=== PATIENT | male | born 1965 | race Caucasian/White ===

== ENCOUNTER 2021-07-29 09:23 | Outpatient (CLI) | payer BC, SELFPAY ==
[2021-07-29 10:39] LABS: Anion Gap 2 (5-15); BUN 21 mg/dL (7-18); BUN/Creat Ratio 22.5 RATIO (10-20); Calcium,Total 8.6 mg/dL (8.5-10.1); Chloride 107 mmol/L (98-107); Cholesterol 192 mg/dL (200); Creatinine, Serum 0.93 mg/dL (0.70-1.30); EST Glomerular Filtration Rate 88 mL/min (>60); Est Glom Filt Rate - Afr Amer 107 mL/min (>60); Glucose 98 mg/dL (74-106); High Density Lipoprotein 29 mg/dL; PSA,Total - Annual Screen 0.98 ng/mL (0.00-4.00); Potassium 4.2 mmol/L (3.5-5.1); Sodium Level 140 mmol/L (136-145); Thyroid Stim Hormone (TSH) 1.87 uIU/mL (0.358-3.74); Triglycerides 174 mg/dL; Very Low Density Lipoprotein 35 mg/dL (5-40)
== END 2021-07-29 23:59 | disposition home or self-care (01) ==
LOC: LAB 09:28
PROVIDERS: PCP Family Medicine; Referring Provider Family Medicine; Visit Provider Family Medicine
DX: N40.0 Benign prostatic hyperplasia without lower urinary tract symptoms (principal); F41.9 Anxiety disorder, unspecified; I10 Essential (primary) hypertension
CPT/HCPCS: 36415; 80048; 80061; 84153; 84443; G0103

== ENCOUNTER → 2021-12-27 | Outpatient (CLI) | payer BC, SELFPAY ==
--- NOTE | 2021-12-27 16:10 | RAD_ITS ---
INDICATION: PAIN EXAMINATION/TECHNIQUE: X-RAY - XR Abdomen Series W/ Chest 1 View: 5 image Frontal chest with upright and supine abdominal radiograph COMPARISON: None. FINDINGS: --Chest: LINES/DEVICES: None. LUNGS: No consolidation, edema or effusion. No pneumothorax. MEDIASTINUM AND CARDIOVASCULAR STRUCTURES: Cardiac silhouette not enlarged. Central airways and mediastinal contour are unremarkable. BONES AND SOFT TISSUES: No acute findings. --Abdomen: BOWEL GAS PATTERN: Epigastric surgical changes. Non-obstructive bowel gas pattern. No bowel or stomach distention. Large colonic stool burden. FREE AIR: None visualized. ORGANOMEGALY: Hepatomegaly. Splenomegaly suggested. CALCIFICATIONS: Pelvic phleboliths. BONES AND SOFT TISSUES: No acute findings. Dextrocurvature of the thoracolumbar spine. RAD/Acute Abdomen Inc Chest IMPRESSION: No evidence of acute cardiopulmonary process. Large colonic stool burden as can be seen with constipation. Findings concerning for hepatosplenomegaly Electronically Signed: Josef Baeza MD at 23:48 EDT ,
[2021-12-27 17:55] LABS: Hematocrit 36.2 % (40-54); Hemoglobin 12.1 g/dL (13.0-16.5); Mean Corp Hgb Conc 33.4 g/dL (32-36); Mean Corpuscular Hgb 29.3 pg (27.0-32.0); Mean Corpuscular Volume 87.7 fL (80-94); Mean Platelet Vol. 10.2 fl (6.2-12.0); Platelet Count 115 K/mm3 (150-450); RBC Distribution Width CV 14.1 % (11.6-14.6); RBC Distribution Width SD 45.3 fl (35.1-43.9); Red Blood Count 4.13 M/mm3 (4.6-6.2); White Blood Count 4.1 K/mm3 (4.4-11.0)
[2021-12-27 18:33] LABS: ALB/GLOB Ratio 1.2 RATIO (0.9-2.4); AST(SGOT) 13 U/L (15-37); Alanine Aminotransfer ALT/SGPT 24 U/L (16-61); Albumin, Serum 3.7 g/dL (3.2-5.0); Alkaline Phosphatase 82 U/L (45-117); Anion Gap 4 (5-15); BUN 20 mg/dL (7-18); BUN/Creat Ratio 18.7 RATIO (10-20); Calcium,Total 8.5 mg/dL (8.5-10.1); Chloride 107 mmol/L (98-107); Creatinine, Serum 1.07 mg/dL (0.70-1.30); EST Glomerular Filtration Rate 75 mL/min (>60); Est Glom Filt Rate - Afr Amer 91 mL/min (>60); Globulin 3.2 g/dL (2.2-4.2); Glucose 97 mg/dL (74-106); Lipase 56 U/L (73-393); Potassium 4.2 mmol/L (3.5-5.1); Protein, Total 6.9 g/dL (6.4-8.2); Sodium Level 139 mmol/L (136-145)
== END | disposition home or self-care (01) ==
LOC: MTLAB 16:09
PROVIDERS: PCP Family Medicine; Referring Provider Family Medicine; Visit Provider Family Medicine
DX: R10.9 Unspecified abdominal pain (principal); R19.7 Diarrhea, unspecified
CPT/HCPCS: 36415; 74022; 80053; 83690; 85027

== ENCOUNTER → 2021-12-29 | Outpatient (CLI) | payer BC, SELFPAY | END | disposition home or self-care (01) | LOC: LAB 11:48 | PROVIDERS: PCP Family Medicine; Referring Provider Family Medicine; Visit Provider Family Medicine | DX: R19.7 Diarrhea, unspecified (principal); R10.9 Unspecified abdominal pain | CPT/HCPCS: 87506 ==

== ENCOUNTER → 2022-04-14 | Outpatient (CLI) | payer BC, SELFPAY ==
[2022-04-14 08:31] LABS: Anion Gap 2 (5-15); BUN 17 mg/dL (7-18); BUN/Creat Ratio 18.4 RATIO (10-20); Calcium,Total 8.5 mg/dL (8.5-10.1); Chloride 110 mmol/L (98-107); Cholesterol 144 mg/dL (200); Creatinine, Serum 0.92 mg/dL (0.70-1.30); EST Glomerular Filtration Rate 89 mL/min (>60); Est Glom Filt Rate - Afr Amer 108 mL/min (>60); Glucose 100 mg/dL (74-106); High Density Lipoprotein 27 mg/dL; PSA,Total- Diagnostic 1.08 ng/mL (0.0-4.0); Potassium 4.5 mmol/L (3.5-5.1); Sodium Level 140 mmol/L (136-145); Triglycerides 110 mg/dL; Very Low Density Lipoprotein 22 mg/dL (5-40)
== END | disposition home or self-care (01) ==
LOC: LAB 07:37
PROVIDERS: PCP Family Medicine; Referring Provider Family Medicine; Visit Provider Family Medicine
DX: Z00.00 Encounter for general adult medical examination without abnormal findings (principal); N40.0 Benign prostatic hyperplasia without lower urinary tract symptoms
CPT/HCPCS: 36415; 80048; 80061; 84153

== ENCOUNTER → 2023-04-20 | Outpatient (CLI) | payer BC, SELFPAY ==
[2023-04-20 08:29] LABS: Anion Gap 2 (5-15); BUN 15 mg/dL (7-18); BUN/Creat Ratio 15.2 RATIO (10-20); Chloride 108 mmol/L (98-107); Cholesterol 163 mg/dL (200); Creatinine, Serum 0.99 mg/dL (0.70-1.30); EST Glomerular Filtration Rate 82 mL/min (>60); Est Glom Filt Rate - Afr Amer 99 mL/min (>60); Glucose 100 mg/dL (74-106); High Density Lipoprotein 32 mg/dL; PSA,Total - Annual Screen 1.17 ng/mL (0.00-4.00); Potassium 4.5 mmol/L (3.5-5.1); Sodium Level 139 mmol/L (136-145); Triglycerides 94 mg/dL; Very Low Density Lipoprotein 19 mg/dL (5-40)
== END | disposition home or self-care (01) ==
LOC: LAB 07:17
PROVIDERS: PCP Family Medicine; Referring Provider Family Medicine; Visit Provider Family Medicine
DX: Z00.00 Encounter for general adult medical examination without abnormal findings (principal)
CPT/HCPCS: 36415; 80048; 80061; 84153; G0103

== ENCOUNTER → 2024-10-19 | Outpatient (CLI) | payer BC, SELFPAY ==
[2024-10-20 16:01] LABS: ALB/GLOB Ratio 1.8 RATIO (0.9-2.4); AST(SGOT) 19 U/L (<=37); Alanine Aminotransfer ALT/SGPT 16 U/L (<=46); Albumin, Serum 4.3 g/dL (3.4-4.8); Alkaline Phosphatase 94 U/L (40-129); Anion Gap 10 (5-15); BUN 16 mg/dL (4-19); BUN/Creat Ratio 16.7 RATIO (10-20); Calcium,Total 9.1 mg/dL (7.6-11.0); Carbon Dioxide 24.9 mmol/L (21.0-32.0); Chloride 105 mmol/L (98-108); Cholesterol 150 mg/dL (<=200); Creatinine, Serum 0.95 mg/dL (0.70-1.20); EST Glomerular Filtration Rate 91 (>60); Globulin 2.4 g/dL (2.2-4.2); Glucose 89 mg/dL (70-99); High Density Lipoprotein 25 mg/dL; Low Density Lipoprotein Calc. 88 mg/dL; Potassium 4.1 mmol/L (3.3-5.1); Protein, Total 6.7 g/dL (5.9-8.4); Sodium Level 139 mmol/L (133-145); Total Bilirubin 0.56 mg/dL (0.00-1.30); Triglycerides 186 mg/dL; Very Low Density Lipoprotein 37 mg/dL (5-40); cholesterol:hdl ratio screen 5.98
== END | disposition home or self-care (01) ==
LOC: MFPLAB 08:53
PROVIDERS: PCP Family Medicine; Referring Provider Family Medicine; Visit Provider Family Medicine
DX: I10 Essential (primary) hypertension (principal)
CPT/HCPCS: 36415; 80053; 80061

== ENCOUNTER 2025-02-16 14:27 | Inpatient (IN) | payer BC, SELFPAY ==
[2025-02-16 14:28] VITALS: BP 155/94; PULSE 103; RESP 18; TEMP 36.8; O2SAT 96; BMI 29.0
--- NOTE | 2025-02-16 15:22 | US_ITS ---
PROCEDURE: GALLBLADDER 02/16/2025 REASON FOR EXAM: PAIN TECHNIQUE: Procedure Code: USGB Modality: US Procedure: GALLBLADDER COMPARISON: Same-day CT from 02/16/2025. FINDINGS: GALLBLADDER: Distended. No gallstones. Sludge is noted. Gallbladder wall thickening to 6 mm. Trace pericholecystic fluid. Negative Sanchez sign. COMMON BILE DUCT: Measures 8 mm. LIVER: Enlarged liver to 20.2 cm. Increased echogenicity.. Hyperechoic structure within the right hepatic lobe measuring 1.2 x 1.2 x 1.4 cm. RIGHT KIDNEY: Normal in size and echogenicity. No mass. No urinary stones. No hydronephrosis. Pancreas: Within normal limits US/Gallbladder IMPRESSION: Distended gallbladder with thickened gallbladder wall and trace pericholecystic fluid. No definite gallstone is noted. Nonspecific CBD dilation to 8 mm. Acute cholecystitis, cholangitis, or CBD obs truction is not excluded. Consider MRCP if there is continued concern. Hepatomegaly and hepatic steatosis. Hyperechoic structure within the right hepa tic lobe measuring 1.2 x 1.2 x 1.4 cm. Reading Location: [id number]
--- NOTE | 2025-02-16 15:23 | ED.VIS.GI ---
HPI HPI - GI History of Present Illness Chief Complaint: Abd Pain Informant: patient Abdominal Pain/Flank Pain Onset: Today and Yesterday Context: Gradual Onset Timing: Continuous Quality: Aching Location: RUQ Current Severity: Moderate Maximum Severity: Moderate Worsened by: Nothing Relieved by: Nothing Nausea/Vomiting/Emesis GI Symptom: Positive for Nausea Onset: Today and Yesterday Diarrhea/Melena/Hematochezia GI Symptom: Negative for Diarrhea, Melena or Hematochezia Associated Symptoms Associated Symptoms: Negative for Dysuria, Frequency, Hematuria or Urgency Narrative Narrative: 59-year-old male history of BPH. Prior abdominal hernia repair and 1 testicle removed in the past due to cancer. Planing of epigastric Rivacor abdominal pain since yesterday. Associated nausea. No diarrhea. No fever. No dysuria. Had an outpatient CAT scan done today which showed gallstones and possible cholecystitis. No labs. Was sent in by his primary care physician's office to the emergency department. States he had a subjective fever and chills with this. Prior similar symptoms: No Recent Illness/Hospitalization: No PFSH PFSH Allergy/AdvReac Type Severity Reaction Status Date / Time iodine Allergy Rash Verified 02/16/25 15:47 Penicillins Allergy unknown Verified 02/16/25 15:47 ROS ROS ED ROS Narrative Abdominal pain. Nausea. Subjective fever and chills. Constitutional Constitutional ED: Reports chills, fever(s) and subjective ENT ENT ED: Denies ear pain Cardiovascular Cardiovascular: Denies chest pain Respiratory/Chest Respiratory/Chest: Denies cough Gastrointestinal Gastrointestinal: Reports abdominal pain and nausea; Denies diarrhea or melena Genitourinary Genitourinary ED: Denies dysuria or hematuria Musculoskeletal Musculoskeletal: Denies arthralgias Integumentary Denies abscess Neurologic Neurologic: Denies headache(s) Psychiatric Psychiatric: Denies anxiety Endocrine Endocrinology: Denies polydipsia Hematologic/Lymphatic Hematologic/Lymphatic: Denies easy bleeding Allergic/Immunologic Allergic/Immunologic ED: Denies mouth swelling, tongue swelling or urticaria EXAM Physical Exam Narrative Exam Narrative: 59-year-old male vital signs stable afebrile. Companied by his . H EENT exam pupils round react light. Moist mutes members. Neck nontender no JVD. Back nontender. Lungs clear to auscultation bilaterally. Heart regular rhythm rate about 103 no murmur. Chest wall and ribs nontender. Abdomen soft nondistended normal bowel sounds. Epigastric right upper quadrant tenderness. Right lower quadrant left side of abdomen nontender. Nondistended. No hernia or mass. No pulsatile mass. No obstruction. Moving all 4 extremities. Nontender no edema. Normal strength. Normal range of motion. Neurologically awake and alert. Answer questions following commands. Const Vital Signs: 02/16/25 14:28 02/16/25 16:28 Temperature 98.3 F Temperature Source Oral Pulse Rate 103 H 80 Respiratory Rate 18 16 Blood Pressure 155/94 H 131/85 H Blood Pressure Mean 114 100 Pulse Ox 96 95 Oxygen Delivery Method Room Air Room Air Positive well nourished and well developed; Negative for obese, cachectic or contractures General Appearance ED: well developed and NAD; Negative for cachectic, contractures or pallor Nutritional Appearance: Negative for cachectic or obese HEENT Reports moist mucous membranes normocephalic and atraumatic Eyes PERRL and EOMs intact bilaterally Neck no lymphadenopathy, supple and no JVD General: Negative for tenderness Lymph Lymphatic: Negative for other Resp normal respiratory effort and clear to auscultation bilaterally Effort and Inspection: Negative for respiratory distress Auscultation: Negative for rales, rhonchi, wheezes or diminished lung sounds Cardio regular rate, regular rhythm, S1 normal heart sound, S2 normal heart sound and no murmurs Rate: Negative for bradycardia or tachycardic Rhythm: Negative for abnormal rhythm GI non-distended and no masses; Negative for non-tender Auscultation: normoactive bowel sounds Palpation: soft and tender; Negative for guarding, rigid, hepatomegaly, splenomegaly, hernia, mass, pulsatile mass or rebound tenderness present Back/Spine no CVA tenderness General Back: Negative for CVA tenderness Cervical Spine: Negative for cervical spine tenderness Thoracic Spine / Upper Back: Negative for thoracic spinal tenderness Lumbar Spine / Lower Back: Negative for lumbar spinal tenderness Extremity full ROM General Extremety ED: Negative for edema or tenderness General Extremity: Negative for edema Neuro CN's II-XII intact bilaterally and moves all extremities Sensorium / Orientation: alert, oriented to person, oriented to place and oriented to time Motor Exam: strength 5/5 throughout Psych mental status grossly normal and thought process normal Attitude: No agitated Mood & Affect: Negative for depressed, anxious or tearful Skin no wounds General Skin Exam: Negative for jaundice or pallor Lesions: no lesions Rashes: no rashes Trauma: Negative for abrasion Nails: Negative for discolored MDM MDM MDM Narrative Medical decision making narrative: 59-year-old right upper quadrant epigastric abdominal pain with a CAT scan today showing gallstones and possible cholecystitis. Patient was treated with IV morphine and Zofran. Ultrasound of the gallbladder will be obtained and screening labs. Repeat exam patient was doing well around 4 PM. Pain much better after the pain medication. We discussed his test results were just waiting on the ultrasound of his gallbladder. Gallbladder ultrasound is consistent with distended gallbladder with thickened gallbladder wall and trace Yousif cholecystic fluid. Consistent with acute cholecystitis. I discussed this with general surgeon Dr. Esmer Brunner. She is in the emergency department this time evaluate the patient and will admit the patient for possible cholecystectomy tomorrow. Patient be started on IV Zosyn. EKG will be obtained for preop. History & Record Review Discussion w/independent historian: Patient and Family Additional record(s) reviewed:: No prior records Lab Data Attestation: I reviewed the patient's lab results. Lab results narrative: CBC shows white count 7. H&H 13 and 38. Platelets 123. Electrolytes show sodium 132. Gap 12. Normal BUN of 12 creatinine 0.9. Glucose 165. Liver enzymes show a AST of 60. ALT of 111. Alk phos 288. Lipase is 11. Urinalysis shows 5-10 red cells. No white cells. No bacteria. No nitrites. Labs: Laboratory Results - last 24 hr 02/16/25 02/16/25 15:25 15:45 WBC 7.2 RBC 4.46 L Hgb 13.6 Hct 38.7 L MCV 86.8 MCH 30.5 MCHC 35.1 RDW Std Deviation 40.2 RDW Coeff of [place] 12.7 Plt Count 123 L MPV 9.4 Immature Gran % (Auto) 0.300 Neut % (Auto) 82.6 H Lymph % (Auto) 7.2 L [place] % (Auto) 9.8 Eos % (Auto) 0.0 Baso % (Auto) 0.1 Absolute Neuts (auto) 6.0 Absolute Lymphs (auto) 0.52 L Nucleated RBC % 0 Sodium 132 L Potassium 3.8 Chloride 97 L Carbon Dioxide 23.4 Anion Gap 12 BUN 12 Creatinine 0.90 Estim Creat Clear Calc 95.14 Est GFR (MDRD) Non-Af 97 BUN/Creatinine Ratio 12.9 Glucose 165 H Calcium 9.3 Total Bilirubin 1.17 AST 60 H ALT 111 H Alkaline Phosphatase 288 H Total Protein 7.3 Albumin 4.0 Globulin 3.3 Albumin/Globulin Ratio 1.2 Lipase 11 L Urine Color Yellow Urine Clarity Sl Cloudy Urine pH 6.0 Ur Specific [place] 1.020 Urine Protein 30 H Urine Glucose (UA) Normal Urine Ketones Negative Urine Occult Blood 50 H Urine Nitrite Negative Urine Bilirubin Negative Urine Urobilinogen Normal Ur Leukocyte Esterase 25 H Urine RBC 5-10 SEEN Urine WBC 0-5 SEEN Ur Squamous Epith Cells 0 SEEN Urine Bacteria 0 SEEN Urine Mucus 2+ Radiography Diagnostic Testing: Clinical Impression(s) from Imaging Studies Gallbladder Ultrasound 02/16/25 15:22 IMPRESSION: Distended gallbladder with thickened gallbladder wall and trace pericholecystic fluid. No definite gallstone is noted. Nonspecific CBD dilation to 8 mm. Acute cholecystitis, cholangitis, or CBD obstruction is not excluded. Consider MRCP if there is continued concern. Hepatomegaly and hepatic steatosis. Hyperechoic structure within the right hepatic lobe measuring 1.2 x 1.2 x 1.4 cm. Reading Location: [id number] Discharge Plan Dx/Rx/DC Orders Clinical Impression: Abdominal pain, Acute cholecystitis Disposition Disposition: Acute Care [facility]
[2025-02-16 15:40] LABS: Hematocrit 38.7 % (40-54); Hemoglobin 13.6 g/dL (13.0-16.5); Immature Granulocytes Count 0.020 X10^3/uL (0.0-0.0); Mean Corp Hgb Conc 35.1 g/dL (32-36); Mean Corpuscular Volume 86.8 fL (80-94); Mean Platelet Vol. 9.4 fl (6.2-12.0); NRBC Flagged by Analyzer 0 % (0-5); POSITIVE DIFFERENTIAL YES; Platelet Count 123 K/mm3 (150-450); RBC Distribution Width CV 12.7 % (11.6-14.6); RBC Distribution Width SD 40.2 fl (35.1-43.9); Red Blood Count 4.46 M/mm3 (4.6-6.2); White Blood Count 7.2 K/mm3 (4.4-11.0)
[2025-02-16 15:49] LABS: Squamous Epithelial Cells - UA 0 SEEN /hpf (0-5)
[2025-02-16 15:52] LABS: Color, Urine Yellow (Yellow); Glucose, Dipstick Normal (Normal); Ketone-Dipstick Negative (Negative); Leukocyte Esterase-Dipstick 25 /ul (Negative); Nitrite-Dipstick Negative (Negative); Occult Blood-Urine 50 /ul (Negative); Protein-Dipstick 30 mg/dl (Negative); Specific Gravity, Urine 1.020 (1.002-1.030); Urine Bilirubin Dipstick Negative (Negative)
[2025-02-16 16:02] LABS: Mucous, Urine 2+ /hpf (<or=2+); Red Blood Cells-Urine 5-10 SEEN /hpf (0-5)
[2025-02-16 16:02] LABS: AST(SGOT) 60 U/L (<=37); Alanine Aminotransfer ALT/SGPT 111 U/L (<=46); Albumin, Serum 4.0 g/dL (3.4-4.8); Alkaline Phosphatase 288 U/L (40-129); Anion Gap 12 (5-15); BUN 12 mg/dL (4-19); BUN/Creat Ratio 12.9 RATIO (10-20); Calcium,Total 9.3 mg/dL (7.6-11.0); Carbon Dioxide 23.4 mmol/L (21.0-32.0); Chloride 97 mmol/L (98-108); Estimated Creatinine Clearance 95.14 ml/min (50-250); Globulin 3.3 g/dL (2.2-4.2); Glucose 165 mg/dL (70-99); Lipase 11 U/L (13-75); Potassium 3.8 mmol/L (3.3-5.1)
[2025-02-16 16:28] VITALS: BP 131/85; PULSE 80; RESP 16; O2SAT 95
--- NOTE | 2025-02-16 17:32 | EKG12_ITS ---
Test Reason : ABD PAIN Blood Pressure : */* mmHG Vent. Rate : 73 BPM Atrial Rate : 73 BPM P-R Int : 140 ms QRS Dur : 86 ms QT Int : 372 ms P-R-T Axes : 43 -1 32 degrees QTcB Int : 409 ms Normal sinus rhythm Normal ECG Confirmed by OSCAR SAXENA MD ([id number]), multimedia editor EDD RAGLAND ([id number]) on 02/17/2025 10:54:12 AM Referred By: CESAR Confirmed By: OSCAR SAXENA MD
--- NOTE | 2025-02-16 17:45 | PCM.HP.STD ---
HPI - General General Date of Admission: 02/16/25 HPI Narrative FIDELIA VALDOVINOS, is a 59 M who presents to the ER due to right upper quadrant pain. Patient states he had pain on Saturday but then it was gone on Saturday with then had the pain come back on Saturday and has not resolved. Patient did see his PCP and had a CT abdomen done showing possible cholecystitis and was told to go to the ER. Patient had a white blood cell count 7.2 with left shift, ultrasound was done of the gallbladder which showed thickened gallbladder wall trace. Cholecystic fluid no obvious stones are called on the report, 8 mm common bile duct. Patient's AST ALT and alk phos were elevated at the ER as well. Normal total bilirubin [facility] Medical History Hx of testicular cancer Home Medications ?Medication ?Instructions ?Recorded ?Last Taken ?Type tamsulosin 0.4 mg capsule 0.8 mg PO DAILY 02/16/25 02/14/25 07:45 History 0.8 mg Allergy/AdvReac Type Severity Reaction Status Date / Time iodine Allergy Rash Verified 02/16/25 15:47 Penicillins Allergy unknown Verified 02/16/25 15:47 Surgical History Status post left inguinal hernia repair S/P repair of ventral hernia Social History Smoking Status: Never smoker ROS Constitutional Constitutional: Reports anorexia and fever(s) Eyes Eyes: Denies blurry vision ENT HEENT: Denies dysphagia Cardiovascular Cardiovascular: Denies chest pain Respiratory/Chest Respiratory/Chest: Denies cough Gastrointestinal Gastrointestinal: Reports abdominal pain and nausea Genitourinary Genitourinary: Denies hematuria Musculoskeletal Musculoskeletal: Denies joint swelling Integumentary Integumentary: Denies jaundice Neurologic Neurologic: Denies dizziness Psychiatric Psychiatric: Denies anxiety Hematologic/Lymphatic Hematologic/Lymphatic: Denies easy bleeding Vital Signs Vital Signs Vital Signs: 02/16/25 14:28 02/16/25 16:28 Temperature 98.3 F Temperature Source Oral Pulse Rate 103 H 80 Respiratory Rate 18 16 Blood Pressure 155/94 H 131/85 H Blood Pressure Mean 114 100 Pulse Ox 96 95 Oxygen Delivery Method Room Air Room Air Weight Weight: 196 lb 4.8 oz Body Mass Index (BMI) 29.0 Physical Exam Const alert, oriented x3 and no apparent distress HEENT normocephalic and head/scalp atraumatic Resp normal respiratory effort Cardio regular rate GI soft to palpation; Negative for non-distended GI Narrative: Well-healed midline incision, well-healed left open groin incision Palpation: tender RUQ; Negative for guarding Extremity no clubbing, cyanosis or edema Neuro CN's II-XII intact bilaterally Psych mental status grossly normal Results Lab / Micro Data 02/17/25 05:55 02/17/25 05:55 Labs: Laboratory Results - last 24 hr 02/16/25 15:25: WBC 7.2, RBC 4.46 L, Hgb 13.6, Hct 38.7 L, MCV 86.8, MCH 30.5, MCHC 35.1, RDW Std Deviation 40.2, RDW Coeff of Dutch 12.7, Plt Count 123 L, MPV 9.4, Immature Gran % (Auto) 0.300, Neut % (Auto) 82.6 H, Lymph % (Auto) 7.2 L, [place] % (Auto) 9.8, Eos % (Auto) 0.0, Baso % (Auto) 0.1, Absolute Neuts (auto) 6.0, Absolute Lymphs (auto) 0.52 L, Nucleated RBC % 0, Sodium 132 L, Potassium 3.8, Chloride 97 L, Carbon Dioxide 23.4, Anion Gap 12, BUN 12, Creatinine 0.90, Estim Creat Clear Calc 95.14, Est GFR (MDRD) Non-Af 97, BUN/Creatinine Ratio 12.9, Glucose 165 H, Calcium 9.3, Total Bilirubin 1.17, AST 60 H, ALT 111 H, Alkaline Phosphatase 288 H, Total Protein 7.3, Albumin 4.0, Globulin 3.3, Albumin/Globulin Ratio 1.2, Lipase 11 L 02/16/25 15:45: Urine Color Yellow, Urine Clarity Sl Cloudy, Urine pH 6.0, Ur Specific [place] 1.020, Urine Protein 30 H, Urine Glucose (UA) Normal, Urine Ketones Negative, Urine Occult Blood 50 H, Urine Nitrite Negative, Urine Bilirubin Negative, Urine Urobilinogen Normal, Ur Leukocyte Esterase 25 H, Urine RBC 5-10 SEEN, Urine WBC 0-5 SEEN, Ur Squamous Epith Cells 0 SEEN, Urine Bacteria 0 SEEN, Urine Mucus 2+ Imaging Radiology Impression Gallbladder Ultrasound 02/16/25 15:22 IMPRESSION: Distended gallbladder with thickened gallbladder wall and trace pericholecystic fluid. No definite gallstone is noted. Nonspecific CBD dilation to 8 mm. Acute cholecystitis, cholangitis, or CBD obstruction is not excluded. Consider MRCP if there is continued concern. Hepatomegaly and hepatic steatosis. Hyperechoic structure within the right hepatic lobe measuring 1.2 x 1.2 x 1.4 cm. Reading Location: [facility] Assessment & Plan Assessment/Plan (1) Acute cholecystitis: (2) Elevated LFTs: PLAN: Plan Discussed with patient and his will plan to check labs in the morning. Any further changes of LFTs that may be suspicious for choledocholithiasis patient could possibly get an MRCP tomorrow otherwise we will plan for a robotic cholecystectomy with possible cholangiograms. Reviewed the anatomy with the patient and discussed the procedure: Robotic/laparoscopic cholecystectomy with possible cholangiograms, possible open. Review risks including but not limited to bleeding, infection, hernia, bile leak, retained gallstones requiring another procedure ERCP- Endoscopic Retrograde Cholangiopancreatography, injury to another organ (bile ducts, common bile duct, small bowel, etc.) and conversion to an open procedure. All questions were answered. Martha Brunner M.D. Pager: [phone] [facility] [address] [place] [address], [facility], [address] [place] [address] Office: [phone] Charges/Coding Visit Charges Inpatient E&M: 87275 Init Hosp L3
[2025-02-16 18:51] VITALS: BP 135/79; PULSE 79; RESP 18; TEMP 36.6; O2SAT 97; BMI 28.3
[2025-02-16] MEDS: HYDROmorphone 0.5 MG/0.5 ML SYRINGE IV (19:07)
[2025-02-16] MEDS: 0.9% Normal Saline (1000mL) 1,000 ML 125 ML IV (19:54)
[2025-02-16] MEDS: 0.9% Saline Lock 10 ML Syringe IV (19:55)
[2025-02-16] MEDS: Piperacil/Tazobactam 3.375 GM in 0.9% Normal Saline (50mL MB+) 50 ML IV (22:20)
[2025-02-16 22:22] VITALS: BP 141/85; PULSE 84; RESP 18; TEMP 38.4; O2SAT 94
[2025-02-17] VITALS (14 sets, daily range): BP systolic 87–154; BP diastolic 49–92; PULSE 63–86; RESP 16–18; TEMP 36.2–38.9; O2SAT 93–98; BMI 28.4
[2025-02-17] MEDS: 0.9% Normal Saline (1000mL) 1,000 ML 125 ML IV ×2 (03:04→18:18)
[2025-02-17] MEDS: Piperacil/Tazobactam 3.375 GM in 0.9% Normal Saline (50mL MB+) 50 ML IV ×3 (06:01→22:07)
[2025-02-17 06:40] LABS: Hematocrit 39.0 % (40-54); Hemoglobin 13.2 g/dL (13.0-16.5); Immature Granulocytes Count 0.040 X10^3/uL (0.0-0.0); Mean Corp Hgb Conc 33.8 g/dL (32-36); Mean Corpuscular Volume 88.4 fL (80-94); Mean Platelet Vol. 9.9 fl (6.2-12.0); NRBC Flagged by Analyzer 0 % (0-5); POSITIVE DIFFERENTIAL YES; Platelet Count 104 K/mm3 (150-450); RBC Distribution Width CV 12.8 % (11.6-14.6); RBC Distribution Width SD 41.5 fl (35.1-43.9); Red Blood Count 4.41 M/mm3 (4.6-6.2); White Blood Count 7.2 K/mm3 (4.4-11.0)
[2025-02-17] MEDS: HYDROmorphone 0.5 MG/0.5 ML SYRINGE IV (07:01)
[2025-02-17 07:05] LABS: AST(SGOT) 78 U/L (<=37); Alanine Aminotransfer ALT/SGPT 145 U/L (<=46); Albumin, Serum 3.8 g/dL (3.4-4.8); Alkaline Phosphatase 310 U/L (40-129); Anion Gap 9 (5-15); BUN 12 mg/dL (4-19); BUN/Creat Ratio 12.1 RATIO (10-20); Bilirubin, Direct 2.30 mg/dL (0.00-0.30); Calcium,Total 9.1 mg/dL (7.6-11.0); Carbon Dioxide 26.3 mmol/L (21.0-32.0); Chloride 101 mmol/L (98-108); Estimated Creatinine Clearance 85.64 ml/min (50-250); Globulin 3.1 g/dL (2.2-4.2); Glucose 108 mg/dL (70-99); Potassium 4.3 mmol/L (3.3-5.1)
--- NOTE | 2025-02-17 07:11 | MRI_ITS ---
PROCEDURE: MRCP ABDOMEN WITHOUT CONTRAST 02/17/2025 REASON FOR EXAM: ELEVATED LIVER ENZYMES TECHNIQUE: Procedure Code: MRIMRCP Modality: MR Procedure: MRCP ABDOMEN WITHOUT CONTRAST Multiplanar and multisequence images were obtained. CONTRAST: None COMPARISON: February 16, 2025 FINDINGS: Liver: No mass Biliary: Gallbladder wall thickening, gallbladder edema, sludge and tiny calculi are present. No filling defect is seen within the bile ducts. Common bile duct is 10 mm. Pancreas: Atrophic but otherwise unremarkable. No mass or ductal dilation. Spleen: Splenic enlargement. Adrenals: Normal. Kidneys: Kidneys are normal. No collecting system dilation. Peritoneum / Retroperitoneum: No free air, free fluid or mass. Lymph Nodes: No lymphadenopathy. Major Vessels: Normal caliber Bones: Lower lumbar facet hypertrophy. Mild curvature lumbar spine to the right. MRI/MRCP Abdomen without Contrast IMPRESSION: 1. Gallbladder wall thickening, edema, sludge and small calculi. Mildly dilat ed bile duct. No filling defect. No mass at the pancreatic head or ampulla. Correlate with physical exam, obstructive laborato ry indices to exclude cholecystitis. 2. Splenomegaly [place] Alert: As above The critical findings in the findings and impression above were relayed directl y by me by telephone to Dulce Cornejo on 02/17/2025 at 11:09 am with readback verification. Reading Location: [id number]
--- NOTE | 2025-02-17 07:37 | PN.SURG_ITS ---
Subjective Subjective Patient did have fever of 101.2 also increased liver functions?MRCP this morning ordered Objective Data Objective Data Vital Signs: Vital Signs Temp Pulse Resp BP Pulse Ox O2 Del Method 98.1 F 86 18 154/82 H 96 Room Air 02/17/25 03:00 02/17/25 03:00 02/17/25 03:00 02/17/25 03:00 02/17/25 03:00 02/17/25 03:00 Oxygen Delivery Method Room Air Weight: 192 lb 1.6 oz Body Mass Index (BMI) 28.3 Intake & Output: Intake and Output for Last 24 Hours 02/15/25 02/16/25 02/17/25 23:59 23:59 23:59 Intake Total 1345.83 / 1345.83 Balance 1345.83 / 1345.83 Lab / Micro Data 02/17/25 05:55 02/17/25 05:55 Labs: Laboratory Results - last 24 hr 02/16/25 15:25: WBC 7.2, RBC 4.46 L, Hgb 13.6, Hct 38.7 L, MCV 86.8, MCH 30.5, MCHC 35.1, RDW Std Deviation 40.2, RDW Coeff of Dutch 12.7, Plt Count 123 L, MPV 9.4, Immature Gran % (Auto) 0.300, Neut % (Auto) 82.6 H, Lymph % (Auto) 7.2 L, [place] % (Auto) 9.8, Eos % (Auto) 0.0, Baso % (Auto) 0.1, Absolute Neuts (auto) 6.0, Absolute Lymphs (auto) 0.52 L, Nucleated RBC % 0, Sodium 132 L, Potassium 3.8, Chloride 97 L, Carbon Dioxide 23.4, Anion Gap 12, BUN 12, Creatinine 0.90, Estim Creat Clear Calc 95.14, Est GFR (MDRD) Non-Af 97, BUN/Creatinine Ratio 12.9, Glucose 165 H, Calcium 9.3, Total Bilirubin 1.17, AST 60 H, ALT 111 H, A lkaline Phosphatase 288 H, Total Protein 7.3, Albumin 4.0, Globulin 3.3, Albumin/Globulin Ratio 1.2, Lipase 11 L 02/16/25 15:45: Urine Color Yellow, Urine Clarity Sl Cloudy, Urine pH 6.0, Ur Specific [place] 1.020, Urine Protein 30 H, Urine Glucose (UA) Normal, Urine Ketones Negative, Urine Occult Blood 50 H, Urine Nitrite Negative, Urine Bilirubin Negative, Urine Urobilinogen Normal, Ur Leukocyte Esterase 25 H, Urine RBC 5-10 SEEN, Urine WBC 0-5 SEEN, Ur Squamous Epith Cells 0 SEEN, Urine Bacteria 0 SEEN, Urine Mucus 2+ 02/17/25 05:55: WBC 7.2, RBC 4.41 L, Hgb 13.2, Hct 39.0 L, MCV 88.4, MCH 29.9, MCHC 33.8, RDW Std Deviation 41.5, RDW Coeff of [place] 12.8, Plt Count 104 L, MPV 9.9, Immature Gran % (Auto) 0.600, Neut % (Auto) 80.5 H, Lymph % (Auto) 8.4 L, M fabienne % (Auto) 10.2 H, Eos % (Auto) 0.0, Baso % (Auto) 0.3, Absolute Neuts (auto) 5.8, Absolute Lymphs (auto) 0.60 L, Nucleated RBC % 0, Sodium 137, Potassium 4.3, Chloride 101, Carbon Dioxide 26.3, Anion Gap 9, BUN 12, Creatinine 0.99, Estim Creat Clear Calc 85.64, Est GFR (MDRD) Non-Af 87, BUN/Creatinine Ratio 12.1, Glucose 108 H, Calcium 9.1, Total Bilirubin 3.88 H, Direct Bilirubin 2.30 H, AST 78 H, ALT 145 H, Alkaline Phosphatase 310 H, Total Protein 6.9, Albumin 3.8, Globulin 3.1 Radiography Diagnostic Testing: Radiology Impression Gallbladder Ultrasound 02/16/25 15:22 IMPRESSION: Distended gallbladder with thickened gallbladder wall and trace pericholecystic fluid. No definite gallstone is noted. Nonspecific CBD dilation to 8 mm. Acute cholecystitis, cholangitis, or CBD obstruction is not excluded. Consider MRCP if there is continued concern. Hepatomegaly and hepatic steatosis. Hyperechoic structure within the right hepatic lobe measuring 1.2 x 1.2 x 1.4 cm. Reading Location: [facility] Physical Exam Const oriented x3 and no apparent distress Resp normal respiratory effort Cardio regular rate GI soft to palpation GI Narrative: Tender in right upper quadrant epigastric Inspection: Negative for abdominal distention Assessment & Plan Assessment/Plan (1) Acute cholecystitis: (2) Elevated LFTs: PLAN: Plan Patient's LFTs did increase we will get an MRCP this morning. Likely ERCP later today. I will be out tomorrow-last laparoscopic/robotic cholecystectomy maybe on Saturday will see what the MRCP and ERCP shows. Discussed with patient. Martha Brunner M.D. Pager: [phone] [facility] [address] [place] [address], [facility], [address] [place] [address] Office: [phone] Charges/Coding Visit Charges Inpatient E&M: 73327 Subs Hosp L2
[2025-02-17] MEDS: 0.9% Saline Lock 10 ML Syringe IV (07:57)
--- NOTE | 2025-02-17 09:01 | EX.PCM.CON.G ---
Documented by User: CHARLENE Juan 02/17/25 09:08 HPI Consult Data Date of Consult: 02/17/25 HPI Narrative Reason for Consultation: concern for choledocholithiasis HPI Narrative: 59-year-old male presented to the emergency department on 02/16/2025 with complaints of RUQ abdominal pain. CT scan was performed outpatient and revealed gallstones and possible cholecystitis. Gallbladder ultrasound consistent with acute cholecystitis. Patient had a fever last night of 101.2. Labs today showing PLT 104 LABS 02/17/2025 WBC 7.2, HGB 13.2, PLT 104, ALC 0.60, ANC 5.8, Na 137, T. Bili 3.88, D. Bili 2.30, AST 78, ALT 145, ALP 310 02/16/2025 WBC 7.2, HGB 13.6, PLT 123, ALC 0.52, Na 132, glucose 165, T. Bili 1.17, AST 60, ALT 111, ALP 288, Lipase 11 PFSH Medical History Hx of testicular cancer Home Medications ?Medication ?Instructions ?Recorded ?Last Taken ?Type tamsulosin 0.4 mg capsule 0.8 mg PO DAILY 02/16/25 02/14/25 07:45 History 0.8 mg Allergy/AdvReac Type Severity Reaction Status Date / Time iodine Allergy Rash Verified 02/16/25 15:47 Penicillins Allergy unknown Verified 02/16/25 15:47 Surgical History Status post left inguinal hernia repair S/P repair of ventral hernia Social History Smoking Status: Never smoker Lab / Micro Data 02/17/25 05:55 02/17/25 05:55 Labs: Laboratory Results - last 24 hr 02/16/25 15:25: WBC 7.2, RBC 4.46 L, Hgb 13.6, Hct 38.7 L, MCV 86.8, MCH 30.5, MCHC 35.1, RDW Std Deviation 40.2, RDW Coeff of Dutch 12.7, Plt Count 123 L, MPV 9.4, Immature Gran % (Auto) 0.300, Neut % (Auto) 82.6 H, Lymph % (Auto) 7.2 L, [place] % (Auto) 9.8, Eos % (Auto) 0.0, Baso % (Auto) 0.1, Absolute Neuts (auto) 6.0, Absolute Lymphs (auto) 0.52 L, Nucleated RBC % 0, Sodium 132 L, Potassium 3.8, Chloride 97 L, Carbon Dioxide 23.4, Anion Gap 12, BUN 12, Creatinine 0.90, Estim Creat Clear Calc 95.14, Est GFR (MDRD) Non-Af 97, BUN/Creatinine Ratio 12.9, Glucose 165 H, Calcium 9.3, Total Bilirubin 1.17, AST 60 H, ALT 111 H, Alkaline Phosphatase 288 H, Total Protein 7.3, Albumin 4.0, Globulin 3.3, Albumin/Globulin Ratio 1.2, Lipase 11 L 02/16/25 15:45: Urine Color Yellow, Urine Clarity Sl Cloudy, Urine pH 6.0, Ur Specific [place] 1.020, Urine Protein 30 H, Urine Glucose (UA) Normal, Urine Ketones Negative, Urine Occult Blood 50 H, Urine Nitrite Negative, Urine Bilirubin Negative, Urine Urobilinogen Normal, Ur Leukocyte Esterase 25 H, Urine RBC 5-10 SEEN, Urine WBC 0-5 SEEN, Ur Squamous Epith Cells 0 SEEN, Urine Bacteria 0 SEEN, Urine Mucus 2+ 02/17/25 05:55: WBC 7.2, RBC 4.41 L, Hgb 13.2, Hct 39.0 L, MCV 88.4, MCH 29.9, MCHC 33.8, RDW Std Deviation 41.5, RDW Coeff of Dutch 12.8, Plt Count 104 L, MPV 9.9, Immature Gran % (Auto) 0.600, Neut % (Auto) 80.5 H, Lymph % (Auto) 8.4 L, [place] % (Auto) 10.2 H, Eos % (Auto) 0.0, Baso % (Auto) 0.3, Absolute Neuts (auto) 5.8, Absolute Lymphs (auto) 0.60 L, Nucleated RBC % 0, Sodium 137, Potassium 4.3, Chloride 101, Carbon Dioxide 26.3, Anion Gap 9, BUN 12, Creatinine 0.99, Estim Creat Clear Calc 85.64, Est GFR (MDRD) Non-Af 87, BUN/Creatinine Ratio 12.1, Glucose 108 H, Calcium 9.1, Total Bilirubin 3.88 H, Direct Bilirubin 2.30 H, AST 78 H, ALT 145 H, Alkaline Phosphatase 310 H, Total Protein 6.9, Albumin 3.8, Globulin 3.1 Imaging Radiology Impression Gallbladder Ultrasound 02/16/25 15:22 IMPRESSION: Distended gallbladder with thickened gallbladder wall and trace pericholecystic fluid. No definite gallstone is noted. Nonspecific CBD dilation to 8 mm. Acute cholecystitis, cholangitis, or CBD obstruction is not excluded. Consider MRCP if there is continued concern. Hepatomegaly and hepatic steatosis. Hyperechoic structure within the right hepatic lobe measuring 1.2 x 1.2 x 1.4 cm. Reading Location: [facility] Assessment & Plan Assessment/Plan (1) Elevated LFTs: (2) Acute cholecystitis: (3) Abdominal pain: PLAN: Plan 59-year-old male with metabolic risk factors presented with episodic RUQ pain, initially self-resolving but recurring and persisting, associated with fever (101.2) and laboratory evidence of systemic inflammation.?Initial workup revealed WBC 7.2 with left shift, mild thrombocytopenia (123 -> 104), and elevated transaminases and alkaline phosphatase.?Imaging (CT and RUQ ultrasound) demonstrated gallbladder wall thickening, pericholecystic fluid, hepatomegaly, hepatic steatosis, and a mildly dilated common bile duct (8 mm), but no definitive cholelithiasis.?The patient subsequently developed fever and rising direct and total bilirubin, with worsening transaminases and cholestatic indices, raising concern for biliary obstruction and possible cholangitis. Given the evolving clinical picture and laboratory findings, acute cholecystitis with suspected choledocholithiasis or biliary obstruction is the leading diagnosis.?The patient was started on IV piperacillin-tazobactam for empiric coverage. Planned cholecystectomy is now on hold due to new-onset hyperbilirubinemia and concern for ductal pathology; MRCP and ERCP (tentatively sched. for 1230 today) were ordered for further evaluation and potential intervention. Early cholecystectomy remains the definitive therapy once ductal clearance is confirmed and the patient is stabilized. Documented by User: [email or web address] Mai 02/17/25 11:09 HPI Consult Data Date of Consult: 02/17/25 HPI Narrative HPI Narrative: 59-year-old male presented to the emergency department on 02/16/2025 with complaints of RUQ abdominal pain. CT scan was performed outpatient and revealed gallstones and possible cholecystitis. Gallbladder ultrasound consistent with acute cholecystitis. Patient had a fever last night of 101.2. Labs today showing PLT 104 (unclear etiology) Pt having continued RUQ pain today. He urinated and it was darker than usual. He does take Flomax at home and has a hx of testicular cancer.. Pt has not had anything to eat since Saturday. Prior surgeries of the abdomen include hernia repair. LABS 02/17/2025 WBC 7.2, HGB 13.2, PLT 104, ALC 0.60, ANC 5.8, Na 137, T. Bili 3.88, D. Bili 2.30, AST 78, ALT 145, ALP 310 02/16/2025 WBC 7.2, HGB 13.6, PLT 123, ALC 0.52, Na 132, glucose 165, T. Bili 1.17, AST 60, ALT 111, ALP 288, Lipase 11 PFSH Medical History Hx of testicular cancer Home Medications ?Medication ?Instructions ?Recorded ?Last Taken ?Type tamsulosin 0.4 mg capsule 0.8 mg PO DAILY 02/16/25 02/14/25 07:45 History 0.8 mg Allergy/AdvReac Type Severity Reaction Status Date / Time iodine Allergy Rash Verified 02/16/25 15:47 Penicillins Allergy unknown Verified 02/16/25 15:47 Surgical History Status post left inguinal hernia repair S/P repair of ventral hernia Social History Smoking Status: Never smoker Physical Exam Const alert General Appearance: cooperative HEENT normocephalic Head and Scalp: normal to inspection Chest Chest: abnormal inspection of the chest Resp normal respiratory effort Cardio Rate: regular rate Rhythm: regular rhythm GI GI Narrative: Tender to palpation of the RUQ. Positive [place] sign Palpation: firm and tender Medical Records Data Attestation: I reviewed the patient's medical records Lab / Micro Data Attestation: I reviewed the patient's lab results. 02/17/25 05:55 02/17/25 05:55 Assessment & Plan Assessment/Plan (1) Elevated LFTs: (2) Acute cholecystitis: (3) Abdominal pain: PLAN: Plan 59-year-old male with metabolic risk factors presented with episodic RUQ pain, initially self-resolving but recurring and persisting, associated with fever (101.2) and laboratory evidence of systemic inflammation.?Initial workup revealed WBC 7.2 with left shift, mild thrombocytopenia (123 -> 104), and elevated transaminases and alkaline phosphatase.?Imaging (CT and RUQ ultrasound) demonstrated gallbladder wall thickening, pericholecystic fluid, hepatomegaly, hepatic steatosis, and a mildly dilated common bile duct (8 mm), but no definitive cholelithiasis.?The patient subsequently developed fever and rising direct and total bilirubin, with worsening transaminases and cholestatic indices, raising concern for biliary obstruction and possible cholangitis. Given the evolving clinical picture and laboratory findings, acute cholecystitis with suspected choledocholithiasis or biliary obstruction is the leading diagnosis.?The patient was started on IV piperacillin-tazobactam for empiric coverage. Planned cholecystectomy is now on hold due to new-onset hyperbilirubinemia and concern for ductal pathology; MRCP (completed this morning, results pending) and ERCP (tentatively sched. for 1230 today) were ordered for further evaluation and potential intervention. Early cholecystectomy remains the definitive therapy once ductal clearance is confirmed and the patient is stabilized. Discussed plan and procedure with patient and family. Pt was agreeable to proceed with ERCP.
--- NOTE | 2025-02-17 11:42 | PRE.ANES_ITS ---
ASA Classification* ASA Classification ASA Classification: 2 and E Assessment & Plan Anesthesia* Anesthesia Assessment Anesthesia Assessment: Discussed sedation and/or anesthesia options, risks, benefits, and alternatives with patient/parents/legal guardian/POA. Questions invited. The patient/parents/legal guardian/POA seems to understand and agrees to proceed with anesthesia plan. Reviewed the physical assessment, medical history, allergy history and patient home medications list prior to surgery/procedure/anesthetic and documented any changes. Performed airway and anesthesia risk assessments. Anesthesia Type Anesthesia Type: General History Source History Obtained from:: Patient and Chart Anesthesia Focused Assessment* Temperature: 98.5 F Pulse Rate: 66 Blood Pressure: 128/92 Respiratory Rate: 16 Pulse Ox: 98 Oxygen Delivery Method: Room Air Airway Assessment Mouth opens: >3 cm Mallampati Score: II Teeth Condition: Missing Neck Range of motion (ROM): Full ROM Labs Anesthesia Preop lab: CBC WBC, (4.4-11.0) 7.2 K/mm3 Today, 05:55 RBC, (4.6-6.2) 4.41 M/mm3 L Today, 05:55 Hgb, (13.0-16.5) 13.2 g/dL Today, 05:55 Hct, (40-54) 39.0 % L Today, 05:55 Plt Count, (150-450) 104 K/mm3 L Today, 05:55 CHEMISTRY Potassium, (3.3-5.1) 4.3 mmol/L Today, 05:55 Sodium, (133-145) 137 mmol/L Today, 05:55 BUN, (4-19) 12 mg/dL Today, 05:55 Creatinine, (0.70-1.20) 0.99 mg/dL Today, 05:55 Glucose, (70-99) 108 mg/dL H Today, 05:55 TSH, (0.358-3.74) 1.87 uIU/mL 07/29/21, 09:32 COAG Pre-Assessment Diagnosis/Proposed Procedure Planned Operative Procedure(s): ERCP Anesthesia History 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 When Was Last Pacemaker Check QUESTION #4 FULL TEXT: You/Your Family Experience fever (hyperthermia) with Anesthesia Last Oral Intake Last Oral intake: Last Oral Intake NPO since 00:00 02/17/25 10:41 Meds taken in AM with sips of No 02/17/25 10:41 water? Meds patient instructed to take am of surgery PONV PONV - pattern grader cutter: PONV - pattern grader cutter Female HX of Motion Sickness HX of N/V After Surgery Non-Smoker Duration of Surgery greater than 60 minutes Number of Risk Factors PONV Score Height & Weight Height & Weight: Anesthesia: Height & Weight Height 5 ft 8.9 in 02/17/25 11:24 Weight: 87.13 kg 02/17/25 11:24 Body Mass Index (BMI) 28.4 02/17/25 10:41 Respiratory Assessment Respiratory Assessment - pattern grader cutter: Respiratory Tract Infection Hx - pattern grader cutter Hx Respiratory Tract Infection No 02/16/25 19:46 STOP Sleep Apnea STOP Sleep Apnea - pattern grader cutter: STOP Sleep Apnea - pattern grader cutter Hx Hypertension No 02/16/25 18:51 Hx Sleep Apnea No 02/16/25 18:51 CPAP BIPAP Do you snore loudly (louder Yes 02/16/25 18:51 than talking or can be heard Do you often feel tired/ Yes 02/16/25 18:51 fatigued/ sleepy during daytime? Has anyone observed you stop No 02/16/25 18:51 breathing during sleep? STOP Results Positive 02/16/25 18:51 QUESTION #5 FULL TEXT : Do you snore loudly (louder than talking or can be heard through closed doors)? 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 Specify any problems Hx of Preganancy in last 3 N/A 02/16/25 18:51 Months Nurse Filling Out Transfusion [email or web address] 02/16/25 18:51 & Questions: Date: 02/16/25 02/16/25 18:51 Time: 18:59 02/16/25 18:51 Patient unable to answer at this time (ie. confused, unrespo /Reproduction History /Reproductive History - pattern grader cutter: /Reproductive Hx- pattern grader cutter Hx Now Gestational Age (in weeks): EDC: Hx Hx Para Hx Section SAB Active Medications Active Medications: Current Medications Generic Name Dose Route Start Last Admin Trade Name Freq PRN Reason Stop Dose Admin Acetaminophen 650 mg 02/16/25 22:42 02/16/25 22:48 Acetaminophen 325 Mg Tablet PO 650 mg Q6H PRN PRN Administration Pain 1-10 or Fever Hydromorphone HCl 0.5 - 1 mg 02/16/25 18:44 02/17/25 07:01 Hydromorphone 0.5 Mg/0.5 Ml Syringe IV 0.5 mg Q2H PRN PRN Administration Pain Score 6-10 Sodium Chloride 1,000 mls @ 125 mls/hr 02/16/25 18:44 02/17/25 03:04 IV 125 mls/hr .Q8H RACHEL Administration Piperacillin Sod/Tazobactam 50 mls @ 12.5 mls/hr 02/16/25 22:00 02/17/25 06:01 Sod 3.375 gm/ Sodium Chloride IV 12.5 mls/hr Q8 RACHEL Administration Sodium Chloride 250 mls @ 15 mls/hr 02/16/25 19:27 IV .[id number] PRN Saline Flush Sodium Chloride 250 mls @ 15 mls/hr 02/16/25 19:27 IV .[id number] PRN Additional IVPB Infusion Ketorolac Tromethamine 15 mg 02/16/25 22:53 02/17/25 07:57 Ketorolac 15 Mg/Ml Vial IV 02/18/25 06:01 15 mg Q6H PRN PRN Administration Pain 1-10 or Fever Ondansetron HCl 4 mg 02/16/25 18:44 Ondansetron 4 Mg/2 Ml Vial IV Q8H PRN PRN NAUSEA/VOMITING Oxycodone HCl 5 - 10 mg 02/16/25 18:44 Oxycodone 5 Mg Tablet PO Q4H PRN PRN Pain Score 4-10 Sodium Chloride 10 - 40 ml 02/16/25 19:27 02/17/25 07:57 0.9% Saline Lock 10 Ml Syringe IV 10 ml UD PRN Administration SALINE FLUSH Tamsulosin HCl 0.8 mg 02/17/25 08:00 Tamsulosin Hcl 0.4 Mg Capsule PO [address] [facility] Medical History Hx of testicular cancer Home Medications ?Medication ?Instructions ?Recorded ?Last Taken ?Type tamsulosin 0.4 mg capsule 0.8 mg PO DAILY 02/16/2504/29 07:45 History 0.8 mg Allergy/AdvReac Type Severity Reaction Status Date / Time iodine Allergy Rash Verified 02/16/25 15:47 Penicillins Allergy unknown Verified 02/16/25 15:47 Surgical History Status post left inguinal hernia repair S/P repair of ventral hernia Social History Smoking Status: Never smoker Review of Systems (Anesthesia) ROS Narrative System reviewed and no additional complaints, except as documented.
--- NOTE | 2025-02-17 12:30 | MISC_PTH ---
PATIENT: FIDELIA VALDOVINOS LOC: MS3 U#:[id number] AGE/SX: 59/M ROOM: [facility] RE02/17/[address]: Dr. Martha Brunner MD : 1965 BED: 1 DIS: 02/20/2025 SPEC #: [id number] RECD: 02/17/25 13:40 STATUS: SOUTona REQ #: [id number] DANIEL: 02/17/25 12:[address]: Martha Brunner DEPT: SURGICAL PATHOLOGY RECD BY: [place] ENTERED: 02/17/25 16:14 SP TYPE: MISC OTHR DR: MD Dr. Micheal Keen MD Dr. Rahsaan Friend, ANNABELLE KeysC CHARLENE Juan PA Tissues: A - Ampulla of Vater Procedures: Surgery Specimen Level IV HEADER OPERATION: ERCP with biliary stent PRE-OP DIAGNOSIS: Elevated LFT's, acute cholecystitis, abdominal pain TISSUE SUBMITTED: A- Ampulla biopsy MICROSCOPIC DIAGNOSIS A. Duodenum, ampulla, biopsy: * Adenocarcinoma with mucinous features - see note. Note: A limited amount of extensively fragmented tissue is present. A metastasis cannot be ruled out. COMMENT The diagnosis was called to Dr Tona Brunner 02/22/25 at 4:55 pm. MICROSCOPIC DESCRIPTION Slides are reviewed. GROSS DESCRIPTION A. Received in fixative is one container labeled with the patient's name and designated Ampulla biopsy. The specimen consists of multiple irregular fragments of hughes tissue that in aggregate measure 0.9 x 0.7 x 0.2 cm. The specimen is totally submitted in one cassette. PR 02/17/2025 CPT:70427
--- NOTE | 2025-02-17 12:30 | FLU_PTH ---
PATIENT: FIDELIA VALDOVINOS LOC: MS3 U#:[id number] AGE/SX: 59/M ROOM: [facility] [place] RE02/17/[address]: Dr. Martha Brunner MD : 1965 BED: 1 DIS: 02/20/2025 SPEC #: [id number] RECD: 02/17/25 13:40 STATUS: SOUT REQ #: [id number] DANIEL: 02/17/25 12:[address]: Martha Brunner DEPT: CYTOLOGY RECD BY: [place] ENTERED: 02/17/25 16:19 SP TYPE: Fluid OTHR DR: MD Dr. Micheal Keen MD Dr. Rahsaan Friend, DO Genesis Fernandez NP-C ANNABELLE JuanC MEENAKSHI Mai Tissues: A - Biliary tract, NOS Procedures: Special Stain Group II Surgery Specimen Level IV Cytospin Fluid HEADER OPERATION: ERCP with biliary stent PRE-OP DIAGNOSIS: Elevated LFT's, acute cholecystitis, abdominal pain TISSUE SUBMITTED: A- Biliary brush tip and brushings DIAGNOSIS CYTOLOGY A. Biliary tract, brush tip and smears, ERCP (cytospin, cellblock, smear x4): * Atypical cells present. COMMENT See also concurrent tissue biopsy [id number]. CYTOLOGY STUDY Slides are reviewed. CYTOLOGY GROSS A. Received is <5 ml of yellow fluid with brush tip and 4 slides labeled with the patient's name and and designated per the requisition as Biliary brush tip and brushings. Submitted for cytology and cell block preparation. Mr 02/17/2025 CPT: [id number]
--- NOTE | 2025-02-17 12:45 | RAD_ITS ---
PROCEDURE: ERCP BILIARY/PANCREAS 02/17/2025 REASON FOR EXAM: ERCP TECHNIQUE: Procedure Code: RADERCP Modality: DX Procedure: ERCP BILIARY/PANCREAS. Fluoroscopic services provided for ERCP. A minute and 3 seconds of fluoroscopy. Radiation dose: 24.85 mGy. COMPARISON: Comparison is made with prior MRCP done earlier in the day. FINDINGS: ERCP was performed by the overhead distribution engineer. Contrast was injected. There is opacification of the common bile duct in the proximal intrahepatic biliary ducts. Biliary stent was placed. RAD/ERCP Biliary/Pancreas IMPRESSION: ERCP performed for biliary stent placement. Reading Location: [place] [id number]
--- NOTE | 2025-02-17 13:38 | OP.PROVAT_ITS ---
02/17/2025 Micheal Hedrick MD [address] [place] [address] Re : ERCP procedure for Nico Clementecaridad Dear Dr. Hedrick This procedure was performed on Monday, February 17, 2025. My impressions and recommendations are as follows: Impressions : - Mucosal changes in the duodenum. - Biopsies were taken with a cold forceps for histology in the ampulla. - A single localized biliary stricture was found in the lower third of the main bile duct. The stricture was indeterminate. - The entire main bile duct and entire biliary tree were dilated, with a stone causing an obstruction. - Choledocholithiasis was found. Complete removal was accomplished by biliary sphincterotomy and balloon extraction. - A biliary sphincterotomy was performed. - The biliary tree was swept. - Cells for cytology obtained in the lower third of the main duct. - One temporary stent was placed into the common bile duct. Recommendations : My findings are described in the full procedure note, which is enclosed. If I can be of further assistance, please feel free to contact me at . Sincerely, Martin Agarwal DO 02/17/2025 1:38:13 PM This report has been signed electronically.
--- NOTE | 2025-02-17 13:38 | OP.ERCP_ITS ---
Patient Name: Nico Roth Procedure Date: 02/17/2025 12:37 PM Date of : 1965 Age: 59 Procedure: ERCP Indications: Evaluation and possible treatment of bile duct stone(s), Jaundice, Elevated liver enzymes Providers: Martin Agarwal DO Medicines: Monitored Anesthesia Care Patient Profile: This is a 59 year old male. Refer to note in patient chart for documentation of history and physical. Patient has symptoms of acute jaundice. This is a 59 year old male. Complications: No immediate complications. Procedure: Pre-Anesthesia Assessment: - Prior to the procedure, a History and Physical was performed, and patient medications and allergies were reviewed. The patient is competent. The risks and benefits of the procedure and the sedation options and risks were discussed with the patient. All questions were answered and informed consent was obtained. Patient identification and proposed procedure were verified by the physician in the pre-procedure area. Mental Status Examination: alert and oriented. Airway Examination: normal oropharyngeal airway and neck mobility. Respiratory Examination: clear to auscultation. CV Examination: normal. ASA Grade Assessment: II - A patient with mild systemic disease. After reviewing the risks and benefits, the patient was deemed in satisfactory condition to undergo the procedure. The anesthesia plan was to use monitored anesthesia care (MAC). Immediately prior to administration of medications, the patient was re-assessed for adequacy to receive sedatives. The heart rate, respiratory rate, oxygen saturations, blood pressure, adequacy of pulmonary ventilation, and response to care were monitored throughout the procedure. The physical status of the patient was re-assessed after the procedure. After obtaining informed consent, the scope was passed under direct vision. Throughout the procedure, the patient's blood pressure, pulse, and oxygen saturations were monitored continuously. The Duodenoscope was introduced through the mouth, and advanced to the duodenum and used to inject contrast into the bile duct. The ERCP was accomplished without difficulty. The patient tolerated the procedure well. Scope In: 1:04:53 PM Scope Out: 1:25:16 PM Total Procedure Duration Time 0 hours 20 minutes 23 seconds Findings: The e/m engineer film was normal. The esophagus was successfully intubated under direct vision. The scope was advanced to a normal major papilla in the descending duodenum without detailed examination of the pharynx, larynx and associated structures, and upper GI tract. The upper GI tract was grossly normal. The bile duct was deeply cannulated with the short-nosed traction sphincterotome. Contrast was injected. I personally interpreted the bile duct images. There was brisk flow of contrast through the ducts. Image quality was adequate. Contrast extended to the entire biliary tree. Opacification of the entire biliary tree except for the cystic duct and gallbladder, main bile duct and entire biliary tree was successful. The maximum diameter of the ducts was 10 mm. The lower third of the main bile duct contained a single localized stenosis 6 mm in length. The entire biliary tree except for the cystic duct and gallbladder, main bile duct and entire biliary tree were diffusely dilated, with a stone causing an obstruction. The largest diameter was 15 mm. A long 0.025 inch Jagwire was passed into the biliary tree. A 5 mm biliary sphincterotomy was made with a traction (standard) sphincterotome using ERBE electrocautery. There was no post-sphincterotomy bleeding. The biliary tree was swept with a 12 mm balloon starting at the bifurcation, left main hepatic duct and right main hepatic duct. Sludge was swept from the duct. All stones were removed. Cells for cytology were obtained by brushing in the lower third of the main bile duct. A standard esophagogastroduodenoscopy scope was used for the examination of the upper gastrointestinal tract. The scope was passed under direct vision through the upper GI tract. Localized mild mucosal changes characterized by inflammation were found in the ampulla. Biopsies were taken in the ampulla through the esophagogastroduodenoscope with the cold forceps for histology. One 10 Fr by 7 cm temporary stent was placed 5 cm into the common bile duct. Bile flowed through the stent. The stent was in good position. Impression: - Mucosal changes in the duodenum. - Biopsies were taken with a cold forceps for histology in the ampulla. - A single localized biliary stricture was found in the lower third of the main bile duct. The stricture was indeterminate. - The entire main bile duct and entire biliary tree were dilated, with a stone causing an obstruction. - Choledocholithiasis was found. Complete removal was accomplished by biliary sphincterotomy and balloon extraction. - A biliary sphincterotomy was performed. - The biliary tree was swept. - Cells for cytology obtained in the lower third of the main duct. - One temporary stent was placed into the common bile duct. Procedure Code(s): --- Professional --- 42377, Endoscopic retrograde cholangiopancreatography (ERCP); with placement of endoscopic stent into biliary or pancreatic duct, including pre- and post-dilation and guide wire passage, when performed, including sphincterotomy, when performed, each stent 06377, Endoscopic retrograde cholangiopancreatography (ERCP); with removal of calculi/debris from biliary/pancreatic duct(s) 71638, Esophagogastroduodenoscopy, flexible, transoral; with biopsy, single or multiple 28880, 26, Endoscopic catheterization of the biliary ductal system, radiological supervision and interpretation CPT copyright 2021 [employer]. All rights reserved. The codes documented in this report are preliminary and upon power transformer inspector review may be revised to meet current compliance requirements. Martin Agarwal DO 02/17/2025 1:38:13 PM This report has been signed electronically. Number of Addenda: 0 Note Initiated On: 02/17/2025 12:37 PM
--- NOTE | 2025-02-17 14:02 | PCM.POST.ANE ---
Anesthesia: Postop Eval I Current Vital Signs Temperature: 97.1 F Pulse Rate: 74 Blood Pressure: 87/49 Respiratory Rate: 16 Pulse Ox: 94 Oxygen Delivery Method: Room Air Assessment Airway patent: Yes Spontaneous unlabored respirations: Yes Mental status: Asleep nausea: No Vomiting: No Anesthesia Complication: No Fluid Hydration Crystalloid volume administer (ml): 800 Total IV fluid infused: 800 Progress Note Anesthesia document: Postop Eval 1 completed: Yes
--- NOTE | 2025-02-17 15:34 | PCM.POSTANE2 ---
Anesthesia Postop Eval I Sum Postop Eval Completion status Anesthesia document: Postop Eval 1 completed: Yes Anesthesia Postop Eval I Summary Anesthesia Postop Eval I Summary: Anesthesia Postop Eval I: Assessment Summary Airway patent Yes 02/17/25 14:03 [email or web address] Spontaneous unlabored Yes 02/17/25 14:03 [email or web address] respirations Mental status Asleep 02/17/25 14:03 [email or web address] nausea No 02/17/25 14:03 [email or web address] Vomiting No 02/17/25 14:03 [email or web address] Anesthesia Postop Eval I: Fluid Summary Crystalloid volume administer 800 02/17/25 14:03 [email or web address] (ml) Colloids volume administered ( ml) Blood Product volume administered (ml) Total IV fluid infused 800 02/17/25 14:03 [email or web address] Anesthesia Postop Eval I: Summary Notes Anesthesia Complication No 02/17/25 14:03 [email or web address] Anesthesia Complication Comment: Post-operative progress note Anesthesia: Postop Eval II Evaluation Mental status: Awake and Calm Pain Level: 1 nausea: No Vomiting: No Complications Anesthesia Complication: No
--- NOTE | 2025-02-17 16:01 | CASEMGMT ---
Social Work- SW met with pt to complete directives. Pt named Che, friend, as agent. SW provided pt with original and copy for Che. SW placed copy on chart. Pt reports no other needs at this time. OTILIA Mcdonald
[2025-02-18] VITALS (9 sets, daily range): BP systolic 113–122; BP diastolic 62–75; PULSE 56–77; RESP 15–20; TEMP 36.6–38.5; O2SAT 95–98
[2025-02-18 05:28] LABS: Hematocrit 35.8 % (40-54); Hemoglobin 12.0 g/dL (13.0-16.5); Immature Granulocytes Count 0.040 X10^3/uL (0.0-0.0); Mean Corp Hgb Conc 33.5 g/dL (32-36); Mean Corpuscular Volume 90.6 fL (80-94); Mean Platelet Vol. 9.7 fl (6.2-12.0); NRBC Flagged by Analyzer 0 % (0-5); POSITIVE DIFFERENTIAL YES; Platelet Count 108 K/mm3 (150-450); RBC Distribution Width CV 12.8 % (11.6-14.6); RBC Distribution Width SD 42.7 fl (35.1-43.9); Red Blood Count 3.95 M/mm3 (4.6-6.2); White Blood Count 9.0 K/mm3 (4.4-11.0)
[2025-02-18] MEDS: 0.9% Normal Saline (1000mL) 1,000 ML 125 ML IV ×3 (05:35→20:48)
[2025-02-18] MEDS: Piperacil/Tazobactam 3.375 GM in 0.9% Normal Saline (50mL MB+) 50 ML IV ×3 (05:35→21:07)
[2025-02-18 06:50] LABS: AST(SGOT) 33 U/L (<=37); Alanine Aminotransfer ALT/SGPT 97 U/L (<=46); Albumin, Serum 3.4 g/dL (3.4-4.8); Alkaline Phosphatase 231 U/L (40-129); Anion Gap 9 (5-15); BUN 20 mg/dL (4-19); BUN/Creat Ratio 21.8 RATIO (10-20); Bilirubin, Direct 0.68 mg/dL (0.00-0.30); Calcium,Total 8.9 mg/dL (7.6-11.0); Carbon Dioxide 23.9 mmol/L (21.0-32.0); Chloride 107 mmol/L (98-108); Estimated Creatinine Clearance 89.54 ml/min (50-250); Globulin 3.2 g/dL (2.2-4.2); Glucose 142 mg/dL (70-99); Potassium 4.2 mmol/L (3.3-5.1)
--- NOTE | 2025-02-18 07:47 | PCM.PN.SRG ---
Subjective Subjective Patient evaluated resting comfortably in bed. He denies any pain/discomfort, nausea, vomiting. Objective Data Objective Data Vital Signs: Vital Signs Temp Pulse Resp BP Pulse Ox O2 Del Method O2 Flow Rate 98.4 F 57 L 20 H 115/75 96 Room Air 2 02/18/25 07:27 02/18/25 07:27 02/18/25 07:27 02/18/25 07:27 02/18/25 07:27 02/18/25 07:27 02/18/25 00:49 Oxygen Flow Rate (L/min) 2 Oxygen Delivery Method Room Air Weight: 192 lb 1.42 oz Body Mass Index (BMI) 28.4 Intake & Output: Intake and Output for Last 24 Hours 02/16/25 02/17/25 02/18/25 23:59 23:59 23:59 Intake Total 2156.25 / 2156.25 1600 / 1600 Output Total 402 / 402 Balance 1754.25 / 1754.25 1600 / 1600 Lab / Micro Data 02/18/25 05:17 02/18/25 05:17 Labs: Laboratory Results - last 24 hr 02/18/25 05:17: WBC 9.0, RBC 3.95 L, Hgb 12.0 L, Hct 35.8 L, MCV 90.6, MCH 30.4, MCHC 33.5, RDW Std Deviation 42.7, RDW Coeff of Dutch 12.8, Plt Count 108 L, MPV 9.7, Immature Gran % (Auto) 0.400, Neut % (Auto) 89.2 H, Lymph % (Auto) 5.4 L, [place] % (Auto) 4.9, Eos % (Auto) 0.0, Baso % (Auto) 0.1, Absolute Neuts (auto) 8.0 H, Absolute Lymphs (auto) 0.49 L, Nucleated RBC % 0, Sodium 140, Potassium 4.2, Chloride 107, Carbon Dioxide 23.9, Anion Gap 9, BUN 20 H, Creatinine 0.93, Estim Creat Clear Calc 89.54, Est GFR (MDRD) Non-Af 93, BUN/Creatinine Ratio 21.8 H, Glucose 142 H, Calcium 8.9, Total Bilirubin 1.09, Direct Bilirubin 0.68 H, AST 33, ALT 97 H, Alkaline Phosphatase 231 H, Total Protein 6.6, Albumin 3.4, Globulin 3.2 Radiography Diagnostic Testing: Radiology Impression MRCP 02/17/25 07:11 IMPRESSION: 1. Gallbladder wall thickening, edema, sludge and small calculi. Mildly dilated bile duct. No filling defect. No mass at the pancreatic head or ampulla. Correlate with physical exam, obstructive laboratory indices to exclude cholecystitis. 2. Splenomegaly [place] Alert: As above The critical findings in the findings and impression above were relayed directly by me by telephone to Dulce Cornejo on 02/17/2025 at 11:09 am with readback verification. Reading Location: [facility] Endo Retro Cholangiopancreatogram 02/17/25 12:45 IMPRESSION: ERCP performed for biliary stent placement. Reading Location: [place] [id number] Physical Exam GI normal to inspection, nondistended, normoactive bowel sounds Assessment & Plan Assessment/Plan (1) Acute cholecystitis: (2) Elevated LFTs: PLAN: Plan I am following this patient in conjunction with Dr. Dey in Dr. Brunner's absence. Patient is s/p ERCP with stone removal and stent placement by Dr. Agarwal. Cells for cytology were also sent of the distal lower third of main duct. Labs reviewed. Liver enzymes decreasing. Plan for a low fat diet today NPO after midnight Dr. Brunner will plan to perform a Robotic assisted laparoscopic cholecystectomy with ICG tomorrow around 12:15 We will continue to monitor this patient Charges/Coding Visit Charges Inpatient E&M: 40167 Subs Hosp L2
--- NOTE | 2025-02-18 13:43 | CASEMGMT ---
IDALMIS REAL Assessment: Face to Face with pt for initial transition planning/care coordination assessment. IDALMIS REAL introduced self and role at [facility], pt voices understanding and consents to assessment. Pt is A&O x4 and answers all questions appropriately at this time. Pt lying in bed in no distress. Care providers, pharmacy, and demographics verified/updated. Admitting Dx: acute cholecystitis Strata Score:1 PCP:Ryley Specialists:Denies Preferred Pharmacy:[facility] Insurance: [place] Prescription Benefit: yes LNOK: Niharika Irvin, dtr; Che Montanez, friend Living Arrangements: Pt lives alone or stays with friend Che. Pt home is a 2 story but he rents the main level with 2 steps to enter. Pt reports he is I in ADL/IADLs but Che does some of the meals and laundry and grocery shopping. Pt denies concerns at home. Transportation: Pt drives self and denies concerns with transportation. DME:denies HHC/SNF: denies hx of Pt states no concerns with going home at time of dc. Pt states [facility] and she has a single story home as well. Plan for OR tomorrow. Pt states no further concerns/needs. CM to follow. Advised pt to ask CM if any further questions/concerns/needs arise, voices understanding. Pt Goal: Home Plan: Home Estefania RAYGOZA CM
--- NOTE | 2025-02-18 18:01 | PN_ITS ---
Progress Note ?The patient is a 59-year-old man with acute choledocholithiasis status post endoscopic retrograde cholangiopancreatography with stone removal and temporary stent placement. * Interval History:?He reports no abdominal pain, nausea, vomiting, fever, or chills since the ERCP. The patient states he is feeling well and denies any new or worsening symptoms. * Diet:?He has been tolerating a regular diet without difficulty. * Review of Systems:?No new chest pain, shortness of breath, or leg swelling. No urinary symptoms. No headache or dizziness. Physical Exam Const alert General Appearance: cooperative HEENT normocephalic Head and Scalp: normal to inspection Chest Chest: abnormal inspection of the chest Resp normal respiratory effort Cardio Rate: regular rate Rhythm: regular rhythm GI Palpation: firm and tender Assessment & Plan Assessment/Plan (1) Elevated LFTs: (2) Acute cholecystitis: (3) Abdominal pain: (4) Choledocholithiasis: PLAN: Assessment * Post-ERCP Status:?A 59-year-old man on post-procedure day 1 following an ERCP for acute choledocholithiasis. Common bile duct stones were removed, and a temporary stent was placed. The patient is recovering well, is clinically stable, and is without complications. * Patient Condition:?He is tolerating a diet and is pain-free, showing good progress toward recovery. Plan * Procedure:?Proceed with a scheduled cholecystectomy tomorrow morning. * Medications:?Continue current home and hospital medications. * Diet:?Continue current diet. * Monitoring:?Monitor for any signs of post-ERCP pancreatitis, stent migration, or other complications. * Outpatient removal of common bile duct stent. Visit Charges Inpatient E&M: 55133 [facility] Hosp L3
[2025-02-19] VITALS (22 sets, daily range): BP systolic 109–140; BP diastolic 70–92; PULSE 56–74; RESP 16–98; TEMP 36.1–38.3; O2SAT 86–99; BMI 29.2
[2025-02-19 04:36] LABS: Hematocrit 35.9 % (40-54); Hemoglobin 11.6 g/dL (13.0-16.5); Immature Granulocytes Count 0.110 X10^3/uL (0.0-0.0); Mean Corp Hgb Conc 32.3 g/dL (32-36); Mean Corpuscular Volume 92.8 fL (80-94); Mean Platelet Vol. 10.4 fl (6.2-12.0); NRBC Flagged by Analyzer 0 % (0-5); Platelet Count 128 K/mm3 (150-450); RBC Distribution Width CV 13.1 % (11.6-14.6); RBC Distribution Width SD 44.5 fl (35.1-43.9); Red Blood Count 3.87 M/mm3 (4.6-6.2); White Blood Count 8.6 K/mm3 (4.4-11.0)
[2025-02-19] MEDS: 0.9% Normal Saline (1000mL) 1,000 ML 125 ML IV ×2 (04:57→18:36)
[2025-02-19] MEDS: Piperacil/Tazobactam 3.375 GM in 0.9% Normal Saline (50mL MB+) 50 ML IV ×2 (05:00→22:18)
[2025-02-19 05:01] LABS: AST(SGOT) 25 U/L (<=37); Alanine Aminotransfer ALT/SGPT 73 U/L (<=46); Albumin, Serum 3.3 g/dL (3.4-4.8); Alkaline Phosphatase 197 U/L (40-129); Anion Gap 10 (5-15); BUN 20 mg/dL (4-19); BUN/Creat Ratio 21.8 RATIO (10-20); Bilirubin, Direct 0.40 mg/dL (0.00-0.30); Calcium,Total 8.3 mg/dL (7.6-11.0); Carbon Dioxide 24.5 mmol/L (21.0-32.0); Chloride 107 mmol/L (98-108); Estimated Creatinine Clearance 90.51 ml/min (50-250); Globulin 3.1 g/dL (2.2-4.2); Glucose 103 mg/dL (70-99); Potassium 3.6 mmol/L (3.3-5.1)
--- NOTE | 2025-02-19 07:49 | PCM.PN.SRG ---
Subjective Subjective Patient was able to tolerate low-fat diet yesterday does still have some tenderness in the right upper quadrant but much improved after having the ERCP. Objective Data Objective Data Vital Signs: Vital Signs Temp Pulse Resp BP Pulse Ox O2 Del Method O2 Flow Rate 99.8 F H 66 18 127/72 H 99 Room Air 2 02/19/25 05:02 02/19/25 03:52 02/19/25 03:52 02/19/25 03:52 02/19/25 03:52 02/19/25 03:52 02/18/25 00:49 Oxygen Flow Rate (L/min) 2 Oxygen Delivery Method Room Air Weight: 192 lb 1.42 oz Body Mass Index (BMI) 28.4 Intake & Output: Intake and Output for Last 24 Hours 02/17/25 02/18/25 02/19/25 23:59 23:59 23:59 Intake Total 2156.25 / 2156.25 4100 / 4100 1050 / 1050 Output Total 402 / 402 Balance 1754.25 / 1754.25 4100 / 4100 1050 / 1050 Lab / Micro Data 02/19/25 04:05 02/19/25 04:05 Labs: Laboratory Results - last 24 hr 02/19/25 04:05: WBC 8.6, RBC 3.87 L, Hgb 11.6 L, Hct 35.9 L, MCV 92.8, MCH 30.0, MCHC 32.3, RDW Std Deviation 44.5 H, RDW Coeff of Dutch 13.1, Plt Count 128 L, MPV 10.4, Immature Gran % (Auto) 1.300 H, Neut % (Auto) 81.6 H, Lymph % (Auto) 10.1 L, [place] % (Auto) 6.7, Eos % (Auto) 0.1, Baso % (Auto) 0.2, Absolute Neuts (auto) 7.0, Absolute Lymphs (auto) 0.87, Nucleated RBC % 0, Sodium 141, Potassium 3.6, Chloride 107, Carbon Dioxide 24.5, Anion Gap 10, BUN 20 H, Creatinine 0.92, Estim Creat Clear Calc 90.51, Est GFR (MDRD) Non-Af 95, BUN/Creatinine Ratio 21.8 H, Glucose 103 H, Calcium 8.3, Total Bilirubin 0.67, Direct Bilirubin 0.40 H, AST 25, ALT 73 H, Alkaline Phosphatase 197 H, Total Protein 6.4, Albumin 3.3 L, Globulin 3.1 Physical Exam Const oriented x3 and no apparent distress Resp normal respiratory effort Cardio regular rate GI soft to palpation GI Narrative: Mild tender in right upper quadrant Inspection: Negative for abdominal distention Assessment & Plan Assessment/Plan (1) Acute cholecystitis: (2) Elevated LFTs: (3) S/P ERCP: (4) Choledocholithiasis: PLAN: Plan Patient's liver functions have continued to come down after the ERCP. Will plan for robotic cholecystectomy, possible cholangiograms, possible subtotal today. Patient no further questions time. Continue Kathi Brunner M.D. Pager: [phone] [facility] [address] [place] [address], [address] [place] [id number] Office: [phone]
--- NOTE | 2025-02-19 11:34 | PCM.PRE.AN2 ---
ASA Classification* ASA Classification ASA Classification: 2 Assessment & Plan Anesthesia* Anesthesia Assessment Anesthesia Assessment: Discussed sedation and/or anesthesia options, risks, benefits, and alternatives with patient/parents/legal guardian/POA. Questions invited. The patient/parents/legal guardian/POA seems to understand and agrees to proceed with anesthesia plan. Reviewed the physical assessment, medical history, allergy history and patient home medications list prior to surgery/procedure/anesthetic and documented any changes. Performed airway and anesthesia risk assessments. Anesthesia Type Anesthesia Type: General Anesthesia Focused Assessment* Temperature: 99.2 F Pulse Rate: 71 Blood Pressure: 127/72 Respiratory Rate: 16 Pulse Ox: 96 Oxygen Flow Rate (L/min): 2 Airway Assessment Mouth opens: >3 cm Mallampati Score: II Labs Anesthesia Preop lab: CBC WBC, (4.4-11.0) 8.6 K/mm3 Today, 04:05 RBC, (4.6-6.2) 3.87 M/mm3 L Today, 04:05 Hgb, (13.0-16.5) 11.6 g/dL L Today, 04:05 Hct, (40-54) 35.9 % L Today, 04:05 Plt Count, (150-450) 128 K/mm3 L Today, 04:05 CHEMISTRY Potassium, (3.3-5.1) 3.6 mmol/L Today, 04:05 Sodium, (133-145) 141 mmol/L Today, 04:05 BUN, (4-19) 20 mg/dL H Today, 04:05 Creatinine, (0.70-1.20) 0.92 mg/dL Today, 04:05 Glucose, (70-99) 103 mg/dL H Today, 04:05 TSH, (0.358-3.74) 1.87 uIU/mL 07/29/21, 09:32 COAG Pre-Assessment Diagnosis/Proposed Procedure Planned Operative Procedure(s): ERCP Anesthesia History 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 When Was Last Pacemaker Check QUESTION #4 FULL TEXT: You/Your Family Experience fever (hyperthermia) with Anesthesia Last Oral Intake Last Oral intake: Last Oral Intake NPO since 00:01 02/19/25 08:57 Meds taken in AM with sips of No 02/17/25 10:41 water? 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 Female HX of Motion Sickness HX of N/V After Surgery Non-Smoker Duration of Surgery greater than 60 minutes Number of Risk Factors PONV Score Height & Weight Height & Weight: Anesthesia: Height & Weight Height 5 ft 8 in 02/19/25 08:57 Weight: 87.118 kg 02/19/25 08:57 Body Mass Index (BMI) 29.2 02/19/25 08:57 Respiratory Assessment Respiratory Assessment - geometry teacher: Respiratory Tract Infection Hx - geometry teacher Hx Respiratory Tract Infection No 02/16/25 19:46 STOP Sleep Apnea STOP Sleep Apnea - geometry teacher: STOP Sleep Apnea - geometry teacher Hx Hypertension No 02/16/25 18:51 Hx Sleep Apnea No 02/16/25 18:51 CPAP BIPAP Do you snore loudly (louder Yes 02/16/25 18:51 than talking or can be heard Do you often feel tired/ Yes 02/16/25 18:51 fatigued/ sleepy during daytime? Has anyone observed you stop No 02/16/25 18:51 breathing during sleep? STOP Results Positive 02/17/25 13:43 QUESTION #5 FULL TEXT : Do you snore loudly (louder than talking or can be heard through closed doors)? 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 Specify any problems Hx of Preganancy in last 3 N/A 02/16/25 18:51 Months Nurse Filling Out Transfusion [email or web address] 02/16/25 18:51 & Questions: Date: 02/16/25 02/16/25 18:51 Time: 18:59 02/16/25 18:51 Patient unable to answer at this time (ie. confused, unrespo /Reproduction History /Reproductive History - geometry teacher: /Reproductive Hx- geometry teacher Hx Now Gestational Age (in weeks): EDC: Hx Hx Para Hx Section SAB Active Medications Active Medications: Current Medications Generic Name Dose Route Start Last Admin Trade Name Freq PRN Reason Stop Dose Admin Acetaminophen 650 mg 02/16/25 22:42 02/19/25 08:53 Acetaminophen 325 Mg Tablet PO 650 mg Q6H PRN PRN Administration Pain 1-10 or Fever Hydromorphone HCl 0.5 - 1 mg 02/16/25 18:44 02/17/25 07:01 Hydromorphone 0.5 Mg/0.5 Ml Syringe IV 0.5 mg Q2H PRN PRN Administration Pain Score 6-10 Sodium Chloride 1,000 mls @ 125 mls/hr 02/16/25 18:44 02/19/25 04:57 IV 125 mls/hr .Q8H RACHEL Administration Piperacillin Sod/Tazobactam 50 mls @ 12.5 mls/hr 02/16/25 22:00 02/19/25 05:00 Sod 3.375 gm/ Sodium Chloride IV 12.5 mls/hr Q8 RACHEL Administration Sodium Chloride 250 mls @ 15 mls/hr 02/16/25 19:27 IV .[id number] PRN Saline Flush Sodium Chloride 250 mls @ 15 mls/hr 02/16/25 19:27 IV .[id number] PRN Additional IVPB Infusion Indocyanine Green 3.75 mg/ N/A 1.5 mls @ 999 mls/hr 02/19/25 12:15 IV 02/19/25 12:16 PREOP ONE Ondansetron HCl 4 mg 02/16/25 18:44 Ondansetron 4 Mg/2 Ml Vial IV Q8H PRN PRN NAUSEA/VOMITING Oxycodone HCl 5 - 10 mg 02/16/25 18:44 Oxycodone 5 Mg Tablet PO Q4H PRN PRN Pain Score 4-10 Pantoprazole Sodium 40 mg 02/18/25 22:31 02/19/25 07:07 Pantoprazole Sodium 40 Mg Tablet PO Not Given BID RACHEL Sodium Chloride 10 - 40 ml 02/16/25 19:27 02/17/25 07:57 0.9% Saline Lock 10 Ml Syringe IV 10 ml UD PRN Administration SALINE FLUSH Tamsulosin HCl 0.8 mg 02/17/25 08:00 02/19/25 07:07 Tamsulosin Hcl 0.4 Mg Capsule PO Not Given 0800 [facility] Medical History GERD (gastroesophageal reflux disease) Hx of testicular cancer Home Medications ?Medication ?Instructions ?Recorded ?Last Taken ?Type tamsulosin 0.4 mg capsule 0.8 mg PO DAILY 02/16/25 02/14/25 07:45 History 0.8 mg Allergy/AdvReac Type Severity Reaction Status Date / Time iodine Allergy Rash Verified 02/16/25 15:47 Penicillins Allergy unknown Verified 02/16/25 15:47 Surgical History (Updated 02/19/25 @ 07:[address] Martha Brunner MD) S/P ERCP Status post left inguinal hernia repair S/P repair of ventral hernia Social History Smoking Status: Never smoker Review of Systems (Anesthesia) ROS Narrative System reviewed and no additional complaints, except as documented.
--- NOTE | 2025-02-19 11:35 | NURSING ---
1100-PT OFF FLOOR FOR PROCEDURE
[2025-02-19] MEDS: INDOCYANINE GREEN 3.75 MG in Syringe 1.5 ML 999 MG IV (11:42)
[2025-02-19] MEDS: Lactated Ringers 1,000 ML 15 ML IV (11:50)
--- NOTE | 2025-02-19 11:54 | ANES.CONFIRM ---
Anesthesia: Confirm Documents Multiple Procedures on Account (2) Confirmed Documents: Yes
[2025-02-19] MEDS: Piperacil/Tazobactam 3.375 GM/50 ML ML IV (12:06)
[2025-02-19] MEDS: Lidocaine 1% (5 ml sdv) 5 ML Vial IV (12:13)
--- NOTE | 2025-02-19 12:15 | GALL_PTH ---
PATIENT: FIDLEIA VALDOVINOS LOC: MS3 U#:[id number] AGE/SX: 59/M [place] [facility] [place]: Dr. Martha Brunner MD : 1965 BED: 1 DIS: 02/20/2025 SPEC #: [id number] RECD: 02/19/25 16:41 STATUS: LUIGI REKaylee #: [id number] DANIEL: 02/19/25 12:[address]: Martha Brunner DEPT: SURGICAL PATHOLOGY RECD BY: Keke Mccarthy ENTERED: 02/22/25 08:42 SP TYPE: HEBER ALVARADO DR: MD Dr. Martin Jones, DO Tissues: Gallbladder, NOS Procedures: Surgery Specimen Level III HEADER OPERATION: Robotic subtotal cholecystectomy with grams, lysis of adhesions PRE-OP DIAGNOSIS: Acute cholecystitis, elevated LFT's TISSUE SUBMITTED: A- Gallbladder wall MICROSCOPIC DIAGNOSIS A. Gallbladder wall, robotic cholecystectomy: * Acute gangrenous cholecystitis with mucosal erosion * Cholelithiasis MICROSCOPIC DESCRIPTION Slides are reviewed. GROSS DESCRIPTION A. Received in formalin labeled with the patient's name and date of . Designated as gallbladder wall are 2 irregular pink-red portions of apparent gallbladder, devoid of orientation and collectively measuring 8.1 x 5.6 x 2.9 cm in aggregate. A definitive cystic duct margin is not grossly identified. No lymph node is present. The serosal surfaces have patchy fibrinous exudate. The mucosa is pink-red to green, granular and sloughing, with a maximum wall thickness of 1.0 cm. Within the container are free-floating flecks of soft tissue and two possible pigmented choleliths, <0.2 cm each. Cholesterolosis is not identified. Protein Specialist sections are submitted in 2 cassettes. [place] 02/22/2025 CPT:14693
[2025-02-19] MEDS: Bupiv/Epi 0.25% 30 ML Vial (13:16)
[2025-02-19] MEDS: fentaNYL 100 MCG/2 ML Ampul 200 MCG IV (14:51)
--- NOTE | 2025-02-19 14:53 | PCM.OPRPT ---
Operative Report (Standard) Operative Information Date of Procedure: 02/19/25 Pre-Operative Diagnosis: Acute cholecystitis, status post ERCP for choledocholithiasis/cholangitis Post-Operative Diagnosis: Acute gangrenous cholecystitis, status post ERCP for choledocholithiasis/cholangitis Surgery/Procedure Performed: Laparoscopic assisted robotic subtotal cholecystectomy, lysis of adhesions, with 15 Fr SUNNY placement child health associate: Yes Foot Drill Operator: Diya Queen Tasks completed by first coat operator: Opening & closing and Retracting Type of Anesthesia: General/Supplemental RN Documented Start/Stop Times: Operation Date: 02/19/25 12:15 Case Time Into Pre-Op 02/19/25 11:27 Anesthesia Start 02/19/25 12:06 Into Room 02/19/25 12:06 Procedure Start 02/19/25 12:27 Procedure Start Time: 12:27 Procedure Stop Time: 14:55 Select all DRAINS/GRAFTS/IMPLANTS that apply: Drains Drain details: 15 Slovenian SUNNY from right upper quadrant Special Medications: Zosyn 3.375 g IV every 8 hours for acute cholecystitis Estimated Blood Loss: 100 cc Specimen collected: Yes Description of specimen(s) removed: Gallbladder wall Description of surgery: Indications: this is a 59 year-old male who developed abdominal pain/nausea/vomiting and on workup was found acute cholecystitis, choledocholithiasis/cholangitis status post ERCP, patient also has past medical history for 2 previous ventral hernia repairs with mesh. Laparoscopic/robotic cholecystectomy was elected. Description procedure: The patient was placed on operating table in supine position. A timeout was completed verifying correct patient, procedure, site, position and special equipment prior to beginning procedure. General Anesthesia was induced. The abdomen was prepped and draped in usual sterile fashion. Visiport was used to make the incision at Wilson's point in the left upper quadrant. Entry into the abdomen was confirmed visually. Laparoscope was placed. Verifying no injury during initial trocar placement. Additional 8 mm trocars were placed in the inferior midline below the mesh as well as right lower and left lower quadrants. The left upper quadrant port site was also enlarged to an 8 mm. The patient's omentum was found to be stuck against the mesh. Additional 5 mm right upper quadrant trocar was placed to take down the omentum using the Enseal. Lysis of adhesions took about 45 minutes. The table is placed in reverse Trendelenburg position with the right side up. Robot was docked. The adhesions between the gallbladder and omentum with gentle traction. The gallbladder was noted to be tense and firm. Unable to grab onto the gallbladder-the lateral bladder wall did perforate found to be gangrenous when attempting to grab the fundus. This fluid was suctioned. ICG was used to visualize common bile duct, cystic duct and gallbladder did not light up due to acute cholecystitis. The neck of the gallbladder was also densely adherent and firm. Started taking down the peritoneum gallbladder. Did have bleeding from the cystic artery on the neck of the gallbladder this was controlled with fenestrated bipolar as well as Hem-o-ana clip. Electrocautery hook was used to divide the wall of the gallbladder; the majority of the gallbladder wall was found to be green and gangrenous and was about 1 cm thick. Small stones and bile was suctioned. No additional bile was seen coming into the gallbladder. Erbe was used to coagulate the posterior wall of the mucosa which was left in place as well as mucus that the neck of the gallbladder. Hemostasis was checked and a 15 Slovenian round SUNNY was placed in the right upper quadrant exiting through the 5 mm trocar site. This was secured with 3-0 nylon suture. The robot was undocked. Secondary trochars removed. No bleeding was noted the trocar sites. The laparoscope was withdrawn and umbilical trocar removed. The abdomen was allowed to collapse. The gallbladder wall was removed using the endoscopic retrieval bag through the umbilical port, which was enlarged slightly from an 8 mm. The gallbladder is passed off table as specimen. The fascia of the 12 mm trocar was closed with a [id number] 0 Vicryl suture. The skin was closed with sutures of 4-0 Monocryl and Steri-Strips. The patient was extubated. The patient tolerated procedure well and was taken to the postanesthesia care unit in stable condition. Surgical Findings: See operative report Complications Complications: No
--- NOTE | 2025-02-19 15:08 | PCM.POST.ANE ---
Anesthesia: Postop Eval I Current Vital Signs Temperature: 97.0 F Pulse Rate: 74 Blood Pressure: 122/77 Respiratory Rate: 18 Pulse Ox: 95 Assessment Airway patent: Yes Spontaneous unlabored respirations: Yes nausea: No Vomiting: No Anesthesia Complication: No Fluid Hydration Crystalloid volume administer (ml): 1,600 Total IV fluid infused: 1,600 Progress Note Anesthesia document: Postop Eval 1 completed: Yes
[2025-02-20] VITALS (7 sets, daily range): BP systolic 118–148; BP diastolic 68–86; PULSE 61–69; RESP 16–20; TEMP 36.4–37.1; O2SAT 75–99
[2025-02-20] MEDS: 0.9% Normal Saline (1000mL) 1,000 ML 125 ML IV ×2 (02:38→10:57)
[2025-02-20] MEDS: Piperacil/Tazobactam 3.375 GM in 0.9% Normal Saline (50mL MB+) 50 ML IV ×2 (06:11→13:22)
[2025-02-20 07:51] LABS: Hematocrit 30.2 % (40-54); Hemoglobin 10.0 g/dL (13.0-16.5); Immature Granulocytes Count 0.030 X10^3/uL (0.0-0.0); Mean Corp Hgb Conc 33.1 g/dL (32-36); Mean Corpuscular Volume 91.0 fL (80-94); Mean Platelet Vol. 10.2 fl (6.2-12.0); NRBC Flagged by Analyzer 0 % (0-5); POSITIVE DIFFERENTIAL YES; Platelet Count 118 K/mm3 (150-450); RBC Distribution Width CV 12.7 % (11.6-14.6); RBC Distribution Width SD 42.4 fl (35.1-43.9); Red Blood Count 3.32 M/mm3 (4.6-6.2); White Blood Count 6.3 K/mm3 (4.4-11.0)
--- NOTE | 2025-02-20 07:55 | PCM.PN.SRG ---
Subjective Subjective Patient's pain controlled with Tylenol, SUNNY sanguinous, patient down to 75 at night placed on 2 L nasal cannula Objective Data Objective Data Vital Signs: Vital Signs Temp Pulse Resp BP Pulse Ox O2 Del Method O2 Flow Rate 98.5 F 64 18 140/80 H 99 Room Air 2 02/20/25 06:09 02/20/25 06:09 02/20/25 06:09 02/20/25 06:09 02/20/25 06:09 02/20/25 07:24 02/20/25 06:09 Oxygen Flow Rate (L/min) 2 Oxygen Delivery Method Room Air Weight: 192 lb 1 oz Body Mass Index (BMI) 29.2 Intake & Output: Intake and Output for Last 24 Hours 02/18/25 02/19/25 02/20/25 23:59 23:59 23:59 Intake Total 4100 / 4100 4226.50 / 4226.50 1050 / 1050 Output Total 540 / 540 20 / 20 Balance 4100 / 4100 3686.50 / 3686.50 1030 / 1030 Lab / Micro Data 02/19/25 04:05 02/19/25 04:05 Physical Exam Const oriented x3 and no apparent distress Resp Resp Narrative: On 2 L nasal cannula GI soft to palpation GI Narrative: Appropriate tender near incisions. Dressed clean dry and intact, SUNNY sanguinous Assessment & Plan Assessment/Plan (1) S/P laparoscopic cholecystectomy: (2) Acute cholecystitis: (3) Elevated LFTs: (4) S/P ERCP: (5) Choledocholithiasis: PLAN: Plan Postop day 1 from robotic subtotal cholecystectomy with SUNNY placement, lysis of adhesions On regular diet tolerating. Labs pending. On IV Zosyn. Possible DC home today versus tomorrow depending on labs. Patient is agreeable plan. Martha Brunner M.D. Pager: [phone] [facility] [address] [place] [address], [facility], [address] [place] [id number] Office: [phone]
--- NOTE | 2025-02-20 08:17 | DCINST_ITS ---
Discharge Instructions Diet Discharge Diet: Light diet - advance as tolerated Activity Discharge Activity: May Not Drive (while taking narcotic pain medications.) May shower in (days): 1 Lifting Restrictions: no lifting >20 lbs x 2 wks, no strenuous exercise for 4 wks Dressing / Incision Call your doctor if your incision/area has: Continuous Slow Oozing, Sudden Increased Bleeding, Increased Pain/ Swelling, Increased Redness, Foul Smelling Discharge and Swelling at the incision site Call your doctor if you observe: Fever of 101 or Higher Remove Dressing in: 2 days Cleanse incision/area with: Soap & Water Additional Dressing/Incision Instructions:: Steri-Strips will fall off in 7 to 10 days, if they do not fall off okay to remove after 10 days. Change SUNNY site daily and as needed. Log SUNNY output and strip drain every 12 hours. Follow Up Care Please Follow Up With: Martha Brunner MD When: Call the office for a follow-up appointment early next week for SUNNY removal, bring log to appointment; after 5 PM and on the weekends call [phone] with any concerns. Test Results: Test results from this visit will be discussed in further detail at your follow- up appointment, if applicable. Discharge Plan Admission Admit Date/Time: 02/17/25 16:05 Attending Provider: Martha Brunner Primary Care Provider: Micheal Hedrick Consulting Providers: Martin Agarwal Discharge Orders/Prescriptions Prescriptions: New oxycodone 5 mg capsule 5 mg PO Q6H PRN (Reason: pain) 3 Days Qty: 10 0RF Continued tamsulosin 0.4 mg capsule 0.8 mg PO DAILY omeprazole 20 mg capsule,delayed release(DR/EC) 20 mg PO DAILY Referrals / Follow Up: Micheal Hedrick MD [Primary Care Provider, Family Practice] Disposition Disposition (needs filled in before D/C Order can be placed): Home, Self Care
[2025-02-20 08:21] LABS: AST(SGOT) 22 U/L (<=37); Alanine Aminotransfer ALT/SGPT 53 U/L (<=46); Albumin, Serum 2.9 g/dL (3.4-4.8); Alkaline Phosphatase 139 U/L (40-129); Anion Gap 9 (5-15); BUN 17 mg/dL (4-19); BUN/Creat Ratio 22.2 RATIO (10-20); Bilirubin, Direct 0.30 mg/dL (0.00-0.30); Calcium,Total 8.0 mg/dL (7.6-11.0); Carbon Dioxide 23.5 mmol/L (21.0-32.0); Chloride 108 mmol/L (98-108); Estimated Creatinine Clearance 112.52 ml/min (50-250); Globulin 2.7 g/dL (2.2-4.2); Glucose 114 mg/dL (70-99); Potassium 3.7 mmol/L (3.3-5.1)
--- NOTE | 2025-02-20 08:22 | DS.PCM_ITS ---
Providers Date of Admission: 02/17/25 Primary Care Physician: Dr. Micheal Hedrick MD Consultations 02/17/25 08:59 Consult: Gastroenterology Routine Consulting Provider: [facility] Reason for Consult: elevated LFTs EMERGENT Consult: No MD Notified: Yes Date Notified: 02/17/25 Time Notified: 08:59 Method of Notification: Text Reason For Visit: ACUTE CHOLECYSTITIS Diagnosis Discharge Diagnosis (1) S/P laparoscopic cholecystectomy: Status: Acute Code(s): Z90.49 - Acquired absence of other specified parts of digestive tract (2) Acute cholecystitis: Status: Resolved Code(s): K81.0 - Acute cholecystitis (3) Elevated LFTs: Status: Acute Code(s): R79.89 - Other specified abnormal findings of blood chemistry (4) S/P ERCP: Status: Acute Code(s): Z98.890 - Other specified postprocedural states (5) Choledocholithiasis: Status: Resolved Code(s): K80.50 - Calculus of bile duct without cholangitis or cholecystitis without obstruction Plan Postop day 1 from robotic subtotal cholecystectomy with SUNNY placement, lysis of adhesions On regular diet tolerating. Labs pending. On IV Zosyn. Possible DC home today versus tomorrow depending on labs. Patient is agreeable plan. Martha Brunner M.D. Pager: [phone] [facility] [place] [facility] [address] [place] [address], [address] [place] [address] Office: [phone] Medications at Discharge Home Medications tamsulosin 0.4 mg capsule 0.8 mg PO DAILY 02/16/25 omeprazole 20 mg capsule,delayed release 20 mg PO DAILY acid reflux 02/20/25 oxycodone 5 mg capsule 5 mg PO Q6H PRN pain 3 days #10 caps 02/20/25 Hospital Course Operations cholecystecomy (Robotic subtotal with SUNNY placement 02/19/2025) and ERCP Procedures None Summary of Care Provided Minutes Spent on Discharge: 15 Hospital Course: Patient is admitted due to right upper quadrant epigastric pain and elevated LFTs. Initial imaging showed acute cholecystitis. On hospital day 1 patient's LFTs did increase more MRCP was completed did not show any stones in the duct however patient did have a fever with elevated LFTs consistent with cholangitis/biliary obstruction. Patient was taken for an ERCP sphincterotomy and stent placement was done and stones were removed. Patient's LFTs did improve after this. Throughout the hospitalization patient was kept on IV Zosyn. For cholangitis and acute cholecystitis. Patient underwent a robotic subtotal cholecystectomy with cholangiogram on 02/19/2025 found to have acute gangrenous cholecystitis SUNNY was placed. Patient was tolerating a diet pain was controlled he was DC'd home with the SUNNY plan to remove as an outpatient. Weight / BMI Weight Weight: 192 lb 1 oz Body Mass Index (BMI) 29.2 ABG / Lab / Microbiology Data 02/20/25 07:22 02/20/25 07:22 Laboratory: Laboratory Results - last 24 hr 02/20/25 07:22: WBC 6.3, RBC 3.32 L, Hgb 10.0 L, Hct 30.2 L, MCV 91.0, MCH 30.1, MCHC 33.1, RDW Std Deviation 42.4, RDW Coeff of Dutch 12.7, Plt Count 118 L, MPV 10.2, Immature Gran % (Auto) 0.500, Neut % (Auto) 84.8 H, Lymph % (Auto) 9.1 L, [place] % (Auto) 5.6, Eos % (Auto) 0.0, Baso % (Auto) 0.0, Absolute Neuts (auto) 5.3, Absolute Lymphs (auto) 0.57 L, Nucleated RBC % 0, Sodium 140, Potassium 3.7, Chloride 108, Carbon Dioxide 23.5, Anion Gap 9, BUN 17, Creatinine 0.74, Estim Creat Clear Calc 112.52, Est GFR (MDRD) Non-Af 103, BUN/Creatinine Ratio 22.2 H, Glucose 114 H, Calcium 8.0, Total Bilirubin 0.50, Direct Bilirubin 0.30, AST 22, ALT 53 H, Alkaline Phosphatase 139 H, Total Protein 5.6 L, Albumin 2.9 L , Globulin 2.7 D/C Instructions May shower in (days): 1 Call your doctor if your incision/area has: Continuous Slow Oozing, Sudden Increased Bleeding, Increased Pain/ Swelling, Increased Redness, Foul Smelling Discharge and Swelling at the incision site Call your doctor if you observe: Fever of 101 or Higher Cleanse incision/area with: Soap & Water Additional Dressing/Incision Instructions: Steri-Strips will fall off in 7 to 10 days, if they do not fall off okay to remove after 10 days. Change SUNNY site daily and as needed. Log SUNNY output and strip drain every 12 hours. DC O2, CPAP, BIPAP Needs Home O2 Discharge instructions: No Please Follow Up With: Martha Brunner MD When: Call the office for a follow-up appointment early next week for SUNNY removal, bring log to appointment; after 5 PM and on the weekends call [phone] with any concerns. Meaningful Use Info Meaningful Use Meaningful Use Diagnoses (Choose all that apply): None applicable Discharge Plan Admission Admit Date/Time: 02/17/25 16:05 Primary Reason for Your Visit: ACUTE CHOLECYSTITIS Attending Provider: Martha Brunner Primary Care Provider: Micheal Hedrick Consulting Providers: Martin Agarwal Discharge Orders/Prescriptions Prescriptions: New oxycodone 5 mg capsule 5 mg PO Q6H PRN (Reason: pain) 3 Days Qty: 10 0RF Continued tamsulosin 0.4 mg capsule 0.8 mg PO DAILY omeprazole 20 mg capsule,delayed release(DR/EC) 20 mg PO DAILY Referrals / Follow Up: Micheal Hedrick MD [Primary Care Provider, Family Practice] Disposition Disposition (needs filled in before D/C Order can be placed): Home, Self Care
[2025-02-20] MEDS: 0.9% Saline Lock 10 ML Syringe IV (08:41)
== END 2025-02-20 14:48 | disposition home or self-care (01) | DRG 419 ==
LOC: ED 17:36 → MS3 18:00
PROVIDERS: Internal Medicine Gastroenterology; Admitting Provider Surgery; Emergency Provider Emergency Medicine; PCP Family Medicine; Visit Provider Surgery
PROC: 0FC98ZZ Extirpation of Matter from Common Bile Duct, Via Natural or Artificial Opening Endoscopic (ICD-10-PCS; CPT 43260; principal; 2025-02-17 12:10)
PROC: 0FT44ZZ Resection of Gallbladder, Percutaneous Endoscopic Approach (ICD-10-PCS; CPT 47562; principal; 2025-02-19 11:55)
DX: K80.63 Calculus of gallbladder and bile duct with acute cholecystitis with obstruction (principal); K82.A1 Gangrene of gallbladder in cholecystitis; K76.0 Fatty (change of) liver, not elsewhere classified; Z79.899 Other long term (current) drug therapy; R79.89 Other specified abnormal findings of blood chemistry; Z85.47 Personal history of malignant neoplasm of testis
CPT/HCPCS: 36415; 74181; 74330; 76000; 76705; 80048; 80053; 80076; 81001; 83690; 85025; 88108; 88304; 88305; 88313; 93005; 94668; 99284; C2625; A4216; J2405

== ENCOUNTER → 2025-02-16 | Outpatient (CLI) | payer BC, SELFPAY ==
--- NOTE | 2025-02-16 11:50 | CT_ITS ---
PROCEDURE: ABDOMEN WITHOUT IV CONTRAST 02/16/2025 REASON FOR EXAM: RUQ PAIN TECHNIQUE: Procedure Code: CTABD Modality: CT Procedure: ABDOMEN WITHOUT IV CONTRAST coronal and Sagittal reconstruction series were provided. One or more dose reduction techniques were used (e.g., Automated exposure control, adjustment of the mA and/or kV according to patient size, use of iterative reconstruction technique CONTRAST: None RADIATION DOSE SUMMARY: DLP: 496 mGycm COMPARISON: None FINDINGS: Upper abdomen only Noncontrast technique limits evaluation of the abdominal viscera. Lung bases: There is a 1.7 cm nodular density at the right lung base, image 16/128. Liver: Unremarkable Gallbladder: There is a 0.7 cm stone in the gallbladder neck, partly calcified, image 42/128. The gallbladder wall appears irregular and thickened to approximately 1.0 cm. There is inflammation in the pericholecystic fat. Spleen: Spleen is enlarged at 16 cm. Pancreas: Unremarkable Adrenals: Unremarkable Kidneys: Unremarkable Bowel: Included portions of bowel are unremarkable Lymph nodes: There is no pathologic adenopathy. Vasculature: Atherosclerotic calcifications are noted. Peritoneum / Retroperitoneum: Mesh is noted in the anterior abdominal wall with no visible complication. Bones: There is no acute bony abnormality. CT/Abdomen without IV Contrast IMPRESSION: There is a 1.7 cm nodular density at the right lung base, image 16/128. There is a 0.7 cm stone in the gallbladder neck, partly calcified, image 42/128 . The gallbladder wall appears irregular and thickened to approximately 1.0 cm. There is inflammation in the pericholecystic fat. Acute cholecystitis is not excluded. Correlation with nuclear medicine hepatobiliary scan is recommended for further characterization. Spleen is enlarged at 16 cm. Reading Location: [facility]
== END | disposition home or self-care (01) ==
LOC: CT 11:48
PROVIDERS: PCP Family Medicine; Referring Provider Family Medicine; Visit Provider Family Medicine
DX: R10.11 Right upper quadrant pain (principal)
CPT/HCPCS: 74150

== ENCOUNTER → 2025-03-09 | Outpatient (CLI) | payer BC, SELFPAY ==
--- NOTE | 2025-03-09 11:00 | PET_ITS ---
PROCEDURE: PET/PET/CT Tumor Base -Thigh Init
== END | disposition home or self-care (01) ==
PROVIDERS: PCP Family Medicine; Referring Provider Surgery; Visit Provider Surgery
DX: C24.1 Malignant neoplasm of ampulla of Vater (principal)
CPT/HCPCS: 78815; A9552

== ENCOUNTER 2025-03-23 13:04 | Day surgery (SDC) | payer BC, SELFPAY ==
[2025-03-23] VITALS (9 sets, daily range): BP systolic 102–124; BP diastolic 75–84; PULSE 60–75; RESP 16–20; TEMP 36.2–36.6; O2SAT 96–100; BMI 26.6
--- NOTE | 2025-03-23 13:20 | EKG12_ITS ---
Test Reason : PRE-OP Blood Pressure : */* mmHG Vent. Rate : 75 BPM Atrial Rate : 75 BPM P-R Int : 138 ms QRS Dur : 86 ms QT Int : 388 ms P-R-T Axes : 41 -5 24 degrees QTcB Int : 433 ms Normal sinus rhythm Normal ECG When compared with ECG of 16-Feb-2025 17:46, No significant change was found Confirmed by HEMANTH CALLAHAN, OSCAR ([id number]), commissioning editor EDD RAGLAND ([id number]) on 03/25/2025 6:29:57 AM Referred By: Micheal Hedrick Confirmed By: OSCAR SAXENA MD
[2025-03-23] MEDS: Lactated Ringers 1,000 ML 15 ML IV (13:52)
--- NOTE | 2025-03-23 14:05 | PCM.PRE.AN2 ---
ASA Classification* ASA Classification ASA Classification: 3 Assessment & Plan Anesthesia* Anesthesia Assessment Anesthesia Assessment: Discussed sedation and/or anesthesia options, risks, benefits, and alternatives with patient/parents/legal guardian/POA. Questions invited. The patient/parents/legal guardian/POA seems to understand and agrees to proceed with anesthesia plan. Reviewed the physical assessment, medical history, allergy history and patient home medications list prior to surgery/procedure/anesthetic and documented any changes. Performed airway and anesthesia risk assessments. Anesthesia Type Anesthesia Type: MAC History Source History Obtained from:: Patient and Chart Anesthesia Focused Assessment* Temperature: 97.2 F Pulse Rate: 74 Blood Pressure: 106/75 Respiratory Rate: 16 Pulse Ox: 96 Oxygen Delivery Method: Room Air Airway Assessment Mouth opens: >3 cm Mallampati Score: II Teeth Condition: Missing Neck Range of motion (ROM): Full ROM Labs Anesthesia Preop lab: CBC WBC, (4.4-11.0) 8.1 K/mm3 03/11/25, 14:00 RBC, (4.6-6.2) 3.99 M/mm3 L 03/11/25, 14:00 Hgb, (13.0-16.5) 11.7 g/dL L 03/11/25, 14:00 Hct, (40-54) 35.1 % L 03/11/25, 14:00 Plt Count, (150-450) 139 K/mm3 L 03/11/25, 14:00 CHEMISTRY Potassium, (3.3-5.1) 4.2 mmol/L 03/11/25, 14:00 Sodium, (133-145) 135 mmol/L 03/11/25, 14:00 BUN, (4-19) 13 mg/dL 03/11/25, 14:00 Creatinine, (0.70-1.20) 0.88 mg/dL 03/11/25, 14:00 Glucose, (70-99) 109 mg/dL H 03/11/25, 14:00 TSH, (0.358-3.74) 1.87 uIU/mL 07/29/21, 09:32 COAG Pre-Assessment Diagnosis/Proposed Procedure Planned Operative Procedure(s): ERCP Anesthesia History Anesthesia History - acquisition associate: Anesthesia History - acquisition associate Hx Hospitalization Yes: 02-19-25 03/18/25 15:34 Any Problems With Anesthesia Yes: PONV 03/18/25 15:34 Cholinesterase deficiency No 03/18/25 15:34 You/Your Family Experience No 03/18/25 15:34 fever (hyperthermia) with Relationship Recent Exposure to Contagious No 03/23/25 13:42 Disease Does patient have nerve No 03/18/25 15:34 stimulator Patient instructed to have device shut off --Does patient have Pacemaker No 03/23/25 13:47 or ICD? When Was Last Pacemaker Check QUESTION #4 FULL TEXT: You/Your Family Experience fever (hyperthermia) with Anesthesia Last Oral Intake Last Oral intake: Last Oral Intake NPO since 08:00 03/23/25 13:47 Meds taken in AM with sips of Yes 03/23/25 13:47 water? Meds patient instructed to flomax 0800 03/23/25 13:47 take am of surgery PONV PONV - acquisition associate: PONV - acquisition associate Female No 03/18/25 15:34 HX of Motion Sickness Yes 03/18/25 15:34 HX of N/V After Surgery Yes 03/18/25 15:34 Non-Smoker Yes 03/18/25 15:34 Duration of Surgery greater No 03/18/25 15:34 than 60 minutes Number of Risk Factors 3 03/18/25 15:34 PONV Score Moderate Risk 03/18/25 15:34 Height & Weight Height & Weight: Anesthesia: Height & Weight Height 5 ft 9 in 03/23/25 13:47 Weight: 82 kg 03/23/25 13:47 Body Mass Index (BMI) 26.6 03/23/25 13:47 Respiratory Assessment Respiratory Assessment - acquisition associate: Respiratory Tract Infection Hx - acquisition associate Hx Respiratory Tract Infection No 03/18/25 15:34 STOP Sleep Apnea STOP Sleep Apnea - acquisition associate: STOP Sleep Apnea - acquisition associate Hx Hypertension No 03/18/25 15:34 Hx Sleep Apnea Yes: HAS TO SEE MD 03/18/25 15:34 CPAP No 03/18/25 15:34 BIPAP No 03/18/25 15:34 Do you snore loudly (louder than talking or can be heard Do you often feel tired/ fatigued/ sleepy during daytime? Has anyone observed you stop breathing during sleep? STOP Results Positive 03/18/25 15:34 QUESTION #5 FULL TEXT : Do you snore loudly (louder than talking or can be heard through closed doors)? 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 Specify any problems Hx of Preganancy in last 3 N/A 03/18/25 15:34 Months Nurse Filling Out Transfusion JZOLLINGE 03/18/25 15:34 & Questions: Date: 03/18/25 03/18/25 15:34 Time: 15:37 03/18/25 15:34 Patient unable to answer at this time (ie. confused, unrespo /Reproduction History /Reproductive History - acquisition associate: /Reproductive Hx- acquisition associate Hx Now No 03/18/25 15:34 Gestational Age (in weeks): EDC: Hx Hx Para Hx Section SAB No 03/18/25 15:34 Does the father of the baby or his family experience fever w Father of the baby Malignant Hypertension history comment Active Medications Active Medications: Current Medications Generic Name Dose Route Start Last Admin Trade Name Freq PRN Reason Stop Dose Admin Lactated Ringer's 1,000 mls @ 15 mls/hr 03/23/25 14:00 03/23/25 13:52 IV 15 mls/hr .Q48H RACHEL Administration PFSH Medical History Dietary restriction Non-smoker Sleep apnea Vision problems IBS (irritable bowel syndrome) High cholesterol Cataracts, bilateral Primary adenocarcinoma of ampulla of Vater GERD (gastroesophageal reflux disease) Hx of testicular cancer Home Medications ?Medication ?Instructions ?Recorded ?Last Taken ?Type tamsulosin 0.4 mg capsule 0.8 mg PO DAILY 02/16/25 03/23/25 08:00 History omeprazole 20 mg capsule,delayed 20 mg PO DAILY acid reflux 02/20/25 03/22/25 History release cholecalciferol (vitamin D3) 10 10 mcg PO QDAY 03/09/25 03/22/25 History mcg (400 unit) capsule magnesium 200 mg tablet 200 mg PO QDAY 03/09/25 03/22/25 History vitamin E succinate 67 mg (100 67 mg PO QDAY 03/09/25 03/22/25 History unit) tablet benzonatate 100 mg capsule 100 mg PO TID PRN cough 03/11/25 03/22/25 History Allergy/AdvReac Type Severity Reaction Status Date / Time iodine Allergy Rash Verified 03/18/25 15:23 Penicillins Allergy unknown Verified 03/18/25 15:23 Family History Mother Myocardial infarction, Onset Age: 67 Father Hypertension Heart disease Surgical History History of surgical removal of testicle S/P laparoscopic cholecystectomy S/P ERCP Status post left inguinal hernia repair S/P repair of ventral hernia Social History Smoking Status: Never smoker alcohol intake: never substance use type: does not use Review of Systems (Anesthesia) ROS Narrative System reviewed and no additional complaints, except as documented.
--- NOTE | 2025-03-23 14:30 | FLU_PTH ---
PATIENT: FIDELIA VALDOVINOS LOC: EN U#:[id number] AGE/SX: 60/M ROOM: RE03/23/[address]: Dr. Martin Agarwla DO : 1965 BED: DIS: 03/23/2025 SPEC #: [id number] RECD: 03/23/25 15:37 STATUS: LUIGI REQ #: [id number] DANIEL: 03/23/25 14:[address]: Martin Agarwal DEPT: CYTOLOGY RECD BY: [place] ENTERED: 03/24/25 12:27 SP TYPE: Fluid OTHR DR: Dr. Micheal Hedrick MD Tissues: A - Biliary tract, NOS Procedures: Special Stain Group II Surgery Specimen Level IV Cytospin Fluid HEADER OPERATION: ERCP with stent exchange PRE-OP DIAGNOSIS: Primary adenocarcinoma of ampulla of Vater TISSUE SUBMITTED: A- Biliary stent for cytology DIAGNOSIS CYTOLOGY A. Biliary stent, ERCP (cytospin, cellblock): - Essentially acellular specimen. - Bile pigments and debris are present. CYTOLOGY STUDY Slides are reviewed. CYTOLOGY GROSS A. Received is 14cm valverde stent with 0.2ml of yellow thick material labeled with the patient's name and and designated per the requisition as Biliary stent. Submitted for cytology and cell block preparation. Mr 03/24/2025 CPT: 92401,06386
--- NOTE | 2025-03-23 14:46 | PCM.HP.STD ---
HPI - General General Date of Admission: 03/23/25 Date of Service: 03/23/25 Chief Complaint: Biliary stricture HPI Narrative NICO VALDOVINOS, is a 60 M who presents [Chief Complaint: CBD stent [facility] admission 02/16/2025 - 02/20/2025 for suspected cholecystitis. Patient underwent ERCP and laparoscopic cholecystectomy with SUNNY. Pathology demonstrated biliary tract brushings with atypical cells. Ampulla biopsy with adenocarcinoma mucinous features. ERCP 02/17/2025 - Mucosal changes in the duodenum. - Biopsies were taken with a cold forceps for histology in the ampulla. - A single localized biliary stricture was found in the lower third of the main bile duct. The stricture was indeterminate. - The entire main bile duct and entire biliary tree were dilated, with a stone causing an obstruction. - Choledocholithiasis was found. Complete removal was accomplished by biliary sphincterotomy and balloon extraction. - A biliary sphincterotomy was performed. - The biliary tree was swept. - Cells for cytology obtained in the lower third of the main duct. - One temporary stent was placed into the common bile duct. 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 Plan to refer to oncology. Pathology was reviewed with patient by Dr. Brunner OV 03/09/2025 for discussion of CBD stent exchange. Patient feeling well since discharge. He is no longer having abdominal pain. Patient feels afraid to eat but still has an appetite. He endorses that his PET scan is later today and then has an appointment with Dr. Reyes later this week. [facility] Medical History Dietary restriction Non-smoker Sleep apnea Vision problems IBS (irritable bowel syndrome) High cholesterol Cataracts, bilateral Primary adenocarcinoma of ampulla of Vater GERD (gastroesophageal reflux disease) Hx of testicular cancer Home Medications ?Medication ?Instructions ?Recorded ?Last Taken ?Type tamsulosin 0.4 mg capsule 0.8 mg PO DAILY 02/16/25 03/23/25 08:00 History omeprazole 20 mg capsule,delayed 20 mg PO DAILY acid reflux 02/20/25 03/22/25 History release cholecalciferol (vitamin D3) 10 10 mcg PO QDAY 03/09/25 03/22/25 History mcg (400 unit) capsule magnesium 200 mg tablet 200 mg PO QDAY 03/09/25 03/22/25 History vitamin E succinate 67 mg (100 67 mg PO QDAY 03/09/25 03/22/25 History unit) tablet benzonatate 100 mg capsule 100 mg PO TID PRN cough 03/11/25 03/22/25 History Allergy/AdvReac Type Severity Reaction Status Date / Time iodine Allergy Rash Verified 03/18/25 15:23 Penicillins Allergy unknown Verified 03/18/25 15:23 Family History Mother Myocardial infarction, Onset Age: 67 Father Hypertension Heart disease Surgical History History of surgical removal of testicle S/P laparoscopic cholecystectomy S/P ERCP Status post left inguinal hernia repair S/P repair of ventral hernia Social History Smoking Status: Never smoker alcohol intake: never substance use type: does not use ROS Constitutional Constitutional: Denies fatigue, fever(s), poor appetite, weight gain or weight loss Gastrointestinal Gastrointestinal: Denies belching, bloating, change in bowel habits, change in stool character, chewing difficulty, coffee ground emesis, constipation, cramping, diarrhea, dyspepsia, dysphagia, early satiety, excessive flatus, fecal incontinence, heartburn, hematemesis, hematochezia, hemorrhoids, loose stools, melena, nausea, odynophagia, rectal bleeding, tenesmus, vomiting or weight changes Vital Signs Vital Signs Vital Signs: 03/23/25 13:42 03/23/25 13:42 03/23/25 13:47 Temperature 97.2 F L Temperature Source Temporal Pulse Rate 74 Respiratory Rate 16 Respiratory Pattern Normal Blood Pressure 106/75 Blood Pressure Mean 85 Blood Pressure Source Monitor Blood Pressure Position Semi-Fowlers Blood Pressure Location Right Arm Baseline BP 106/75 Pulse Ox 96 Oxygen Delivery Method Room Air 03/23/25 14:06 Temperature 97.2 F L Temperature Source Pulse Rate 74 Respiratory Rate 16 Respiratory Pattern Blood Pressure 106/75 Blood Pressure Mean Blood Pressure Source Blood Pressure Position Blood Pressure Location Baseline BP Pulse Ox 96 Oxygen Delivery Method Room Air Weight Weight: 180 lb 12.465 oz Body Mass Index (BMI) 26.6 Physical Exam Const alert, oriented x3, no apparent distress and healthy appearing General Appearance: cooperative GI normal to inspection, nondistended, normoactive bowel sounds, soft to palpation, non-tender and non-distended Percussion: normal to percussion Rectal Exam: deferred Assessment & Plan Assessment/Plan (1) Primary adenocarcinoma of ampulla of Vater: PLAN: Assessment and Plan Assessment and Plan (1) Primary adenocarcinoma of ampulla of Vater: Status: Acute Plan: Nico is a 60-year-old male patient status post ERCP and laparoscopic cholecystectomy here today for hospital follow-up. Pathology of the duodenum, ampulla, biopsy was consistent with adenocarcinoma however with note indicating a limited amount of extensively fragmented tissue is present and A metastasis cannot be ruled out. Brushings from the ERCP with atypical cells. The pathology was reviewed with patient per general surgery MEENAKSHI Cardona's office note. Patient is scheduled to have a PET scan today and will meet with oncology later this week. Today he was scheduled for repeat ERCP with stent exchange. Patient was agreeable to proceed. - ERCP with stent exchange Note: Portions of this note may have been selectively carried forward from previous documentation to ensure continuity and accuracy of the clinical record. All imported information has been reviewed and updated as necessary to reflect the current patient status, findings, and clinical decision-making for this encounter. [employer] speech recognition hydroponics grower software was used to create portions of this document. Sound alike and misspelled words, as well as other hydroponics grower errors may be contained in the documentation. (2) S/P laparoscopic cholecystectomy: Status: Acute Comment: 02/19/2025 robotic subtotal w SUNNY (3) S/P ERCP: Status: Acute ]
--- NOTE | 2025-03-23 15:00 | RAD_ITS ---
PROCEDURE: ERCP BILIARY/PANCREAS 03/23/2025 REASON FOR EXAM: ERCP Stent exchange. TECHNIQUE: Procedure Code: RADERCP Modality: DX Procedure: ERCP BILIARY/PANCREAS. 33.7 seconds of fluoroscopy. 8.64 mGy radiation dose. 7 images were submitted. COMPARISON: Prior examination dated February 17, 2025. FINDINGS: Intraoperative fluoroscopic imaging was provided for ERCP and stent exchange. RAD/ERCP Biliary/Pancreas IMPRESSION: Intraoperative fluoroscopic imaging provided for ERCP and stent exchange. Reading Location: [id number]
[2025-03-23] MEDS: Lactated Ringers 1,000 ML 1000 ML IV (15:01)
--- NOTE | 2025-03-23 15:31 | OP.PROVAT_ITS ---
03/23/2025 Micheal Hedrick MD [address] [id number] Re : ERCP procedure for Nico Clementecaridad Dear Dr. Hedrick This procedure was performed on Sunday, March 23, 2025. My impressions and recommendations are as follows: Impressions : - A single localized biliary stricture was found in the lower third of the main bile duct. The stricture was malignant appearing. - The entire main bile duct and right and left intrahepatic branches (but not the right or left hepatic ducts) were dilated, with a mass causing an obstruction. - Choledocholithiasis was found. Complete removal was accomplished by biliary sphincterotomy and balloon extraction. - A biliary sphincterotomy was performed. - The biliary tree was swept. Recommendations : My findings are described in the full procedure note, which is enclosed. If I can be of further assistance, please feel free to contact me at . Sincerely, Martin Agarwal, 03/23/2025 3:31:24 PM This report has been signed electronically.
--- NOTE | 2025-03-23 15:31 | OP.ERCP_ITS ---
Patient Name: Nico Roth Procedure Date: 03/23/2025 2:48 PM Date of : 1965 Age: 60 Procedure: ERCP Indications: Jaundice, Elevated liver enzymes, Malignant tumor of the lower third of the main bile duct Providers: Martin Agarwal DO Referring MD: Micheal Hedrick MD Medicines: Monitored Anesthesia Care Patient Profile: This is a 60 year old male. Refer to note in patient chart for documentation of history and physical. Patient has symptoms of acute jaundice. His most recent ERCP for stent. Complications: No immediate complications. Procedure: Pre-Anesthesia Assessment: - Prior to the procedure, a History and Physical was performed, and patient medications and allergies were reviewed. The patient is competent. The risks and benefits of the procedure and the sedation options and risks were discussed with the patient. All questions were answered and informed consent was obtained. Patient identification and proposed procedure were verified by the physician in the pre-procedure area. Mental Status Examination: alert and oriented. Airway Examination: normal oropharyngeal airway and neck mobility. Respiratory Examination: clear to auscultation. CV Examination: normal. Prophylactic Antibiotics: The patient does not require prophylactic antibiotics. Prior Anticoagulants: The patient has taken no anticoagulant or antiplatelet agents except for NSAID medication. ASA Grade Assessment: II - A patient with mild systemic disease. After reviewing the risks and benefits, the patient was deemed in satisfactory condition to undergo the procedure. The anesthesia plan was to use monitored anesthesia care (MAC). Immediately prior to administration of medications, the patient was re-assessed for adequacy to receive sedatives. The heart rate, respiratory rate, oxygen saturations, blood pressure, adequacy of pulmonary ventilation, and response to care were monitored throughout the procedure. The physical status of the patient was re-assessed after the procedure. After obtaining informed consent, the scope was passed under direct vision. Throughout the procedure, the patient's blood pressure, pulse, and oxygen saturations were monitored continuously. The Duodenoscope was introduced through the mouth, and advanced to the duodenum and used to inject contrast into the bile duct. The ERCP was accomplished without difficulty. The patient tolerated the procedure well. Scope In: 3:11:25 PM Scope Out: 3:20:58 PM Total Procedure Duration Time 0 hours 9 minutes 33 seconds Findings: The teacher nursery school film was normal. The esophagus was successfully intubated under direct vision. The scope was advanced to a normal major papilla in the descending duodenum without detailed examination of the pharynx, larynx and associated structures, and upper GI tract. The upper GI tract was grossly normal. The bile duct was deeply cannulated with the short-nosed traction sphincterotome. Contrast was injected. I personally interpreted the bile duct images. There was brisk flow of contrast through the ducts. Image quality was adequate. Contrast extended to the entire biliary tree. Opacification of the entire biliary tree except for the cystic duct and gallbladder and entire biliary tree was successful. The maximum diameter of the ducts was 10 mm. The lower third of the main bile duct contained a single localized stenosis 6 mm in length. The main bile duct and right and left intrahepatic branches (but not the right or left hepatic ducts) were diffusely dilated, with a mass causing an obstruction. The largest diameter was 5 mm. A long 0.025 inch Jagwire was passed into the biliary tree. A 5 mm biliary sphincterotomy was made with a traction (standard) sphincterotome using ERBE electrocautery. There was no post-sphincterotomy bleeding. To discover objects, the biliary tree was swept with a 12 mm balloon starting at the right intrahepatic duct(s). Sludge was swept from the duct. All stones were removed. One stent was removed from the biliary tree using a snare and sent for cytology. The stent was found to be partially occluded via the water column test. Impression: - A single localized biliary stricture was found in the lower third of the main bile duct. The stricture was malignant appearing. - The entire main bile duct and right and left intrahepatic branches (but not the right or left hepatic ducts) were dilated, with a mass causing an obstruction. - Choledocholithiasis was found. Complete removal was accomplished by biliary sphincterotomy and balloon extraction. - A biliary sphincterotomy was performed. - The biliary tree was swept. Procedure Code(s): --- Professional --- 88089, Endoscopic retrograde cholangiopancreatography (ERCP); with removal of foreign body(s) or stent(s) from biliary/pancreatic duct(s) 85597, Endoscopic retrograde cholangiopancreatography (ERCP); with removal of calculi/debris from biliary/pancreatic duct(s) 10376, Endoscopic retrograde cholangiopancreatography (ERCP); with sphincterotomy/papillotomy 10885, 26, Endoscopic catheterization of the biliary ductal system, radiological supervision and interpretation CPT copyright 2021 [employer]. All rights reserved. The codes documented in this report are preliminary and upon fountain dispenser review may be revised to meet current compliance requirements. Martin Agarwal DO 03/23/2025 3:31:24 PM This report has been signed electronically. Number of Addenda: 0 Note Initiated On: 03/23/2025 2:48 PM
--- NOTE | 2025-03-23 15:32 | PCM.POST.ANE ---
Anesthesia: Postop Eval I Current Vital Signs Temperature: 97.9 F Pulse Rate: 75 Blood Pressure: 102/83 Respiratory Rate: 20 Pulse Ox: 97 Oxygen Delivery Method: Room Air Assessment Airway patent: Yes Spontaneous unlabored respirations: Yes Mental status: Awake and Calm nausea: No Vomiting: No Anesthesia Complication: No Fluid Hydration Crystalloid volume administer (ml): 300 Total IV fluid infused: 300 Progress Note Anesthesia document: Postop Eval 1 completed: Yes
--- NOTE | 2025-03-23 16:36 | POSTOPAN2_ITS ---
Anesthesia Postop Eval I Sum Postop Eval Completion status Anesthesia document: Postop Eval 1 completed: Yes Anesthesia Postop Eval I Summary Anesthesia Postop Eval I Summary: Anesthesia Postop Eval I: Assessment Summary Airway patent Yes 03/23/25 15:33 SENIOR INVESTMENT [email or web address] Spontaneous unlabored Yes 03/23/25 15:33 SENIOR INVESTMENT [email or web address] respirations Mental status Awake,Calm 03/23/25 15:33 SENIOR INVESTMENT [email or web address] nausea No 03/23/25 15:33 SENIOR INVESTMENT [email or web address] Vomiting No 03/23/25 15:33 SENIOR INVESTMENT [email or web address] Anesthesia Postop Eval I: Fluid Summary Crystalloid volume administer 300 03/23/25 15:33 SENIOR INVESTMENT [email or web address] (ml) Colloids volume administered ( ml) Blood Product volume administered (ml) Total IV fluid infused 300 03/23/25 15:33 SENIOR INVESTMENT [email or web address] Anesthesia Postop Eval I: Summary Notes Anesthesia Complication No 03/23/25 15:33 SENIOR INVESTMENT [email or web address] Anesthesia Complication Comment: Post-operative progress note Anesthesia: Postop Eval II Evaluation Mental status: Awake and Calm Pain Level: 1 nausea: No Vomiting: No Complications Anesthesia Complication: No
--- NOTE | 2025-03-23 16:36 | PCM.POSTANE2 ---
Anesthesia Postop Eval I Sum Postop Eval Completion status Anesthesia document: Postop Eval 1 completed: Yes Anesthesia Postop Eval I Summary Anesthesia Postop Eval I Summary: Anesthesia Postop Eval I: Assessment Summary Airway patent Yes 03/23/25 15:33 ACCOUNT CLASSIFICATION [email or web address] Spontaneous unlabored Yes 03/23/25 15:33 ACCOUNT CLASSIFICATION [email or web address] respirations Mental status Awake,Calm 03/23/25 15:33 ACCOUNT CLASSIFICATION [email or web address] nausea No 03/23/25 15:33 ACCOUNT CLASSIFICATION [email or web address] Vomiting No 03/23/25 15:33 ACCOUNT CLASSIFICATION [email or web address] Anesthesia Postop Eval I: Fluid Summary Crystalloid volume administer 300 03/23/25 15:33 ACCOUNT CLASSIFICATION [email or web address] (ml) Colloids volume administered ( ml) Blood Product volume administered (ml) Total IV fluid infused 300 03/23/25 15:33 ACCOUNT CLASSIFICATION [email or web address] Anesthesia Postop Eval I: Summary Notes Anesthesia Complication No 03/23/25 15:33 ACCOUNT [email or web address] [email or web address] Anesthesia Complication Comment: Post-operative progress note Anesthesia: Postop Eval II Evaluation Mental status: Awake and Calm Pain Level: 1 nausea: No Vomiting: No Complications Anesthesia Complication: No
== END 2025-03-23 16:05 | disposition home or self-care (01) ==
LOC: EN 13:06 → AC 13:08
PROVIDERS: PCP Family Medicine; Referring Provider Family Medicine; Visit Provider Internal Medicine Gastroenterology
PROC: (CPT 43260; principal; 2025-03-23 14:10)
DX: K80.51 Calculus of bile duct without cholangitis or cholecystitis with obstruction (principal); C24.1 Malignant neoplasm of ampulla of Vater; E78.00 Pure hypercholesterolemia, unspecified; K21.9 Gastro-esophageal reflux disease without esophagitis; Z90.49 Acquired absence of other specified parts of digestive tract; Z85.47 Personal history of malignant neoplasm of testis; Z79.899 Other long term (current) drug therapy
CPT/HCPCS: 43262; 43275; 43264; 74330; 76000; 88108; 88305; 88313; 93005; C2625